=== PATIENT | female | born 1970 | race Caucasian/White ===

== ENCOUNTER 2018-10-01 09:05 | Inpatient (IN) | payer BC ==
[2018-10-01] MEDS ORDERED: Acetaminophen 325 MG Tab PO ONE (09:10)
--- NOTE | 2018-10-01 09:10 | EDM.PDOC ---
ED HPI GENERAL MEDICAL PROBLEM - General Chief Complaint: Respiratory Problem Stated Complaint: SOB, fever Time Seen by Provider: 10/01/18 09:05 Source of Information: Reports: Patient, Old Records ([facility] chart/EMR), Other ([facility] EMR. [place] from [facility] [place] .) History Limitations: Reports: No Limitations - History of Present Illness INITIAL COMMENTS - FREE TEXT/NARRATIVE: She drove herself to the emergency room via private automobile for evaluation of sudden onset fever of 99.7, cough, dizziness, nonspecific dyspnea, nausea, generalized fatigue and weakness with symptoms starting at about 8 AM this morning. Note that the patient has a previous history of immunosuppression and leukopenia, which is being given by her business continuity management director for nonspecific rash. She did apparently stop her immunosuppressants 2 days ago per advice from her business continuity management director with no Neupogen given to this point. She did have a one day history of for loose stools a few days ago with one episode of emesis earlier this morning. The patient did take 400 mg of ibuprofen shortly prior to arrival. Patient's son did have some mild URI symptoms about one week ago with no other known exposure to infection. The patient did not get an influenza booster this past season. She has been having problems for the last couple of weeks with refractory oral and perirectal ulcers with secondary 9/10 oral pain and anorexia during the last several days. The patient denies any chest pain/ pressure, heart flutter, orthostasis, orthopnea, diaphoresis, paresthesias, recent decreased exercise tolerance, or any other anginal-type symptoms. No recent history of abdominal pain, heartburn, diarrhea, melena, gross hematochezia, or any food intolerance, including fatty foods, etc.. She denies any gross hematuria, colic or other UTI symptoms. Onset: Today, Gradual Onset Date: 10/01/18 Onset Time: 08:00 Duration: Constant, Getting Worse Location: Reports: Head (Oral ulcers) Quality: Reports: Burning, Sharp Severity: Severe Improves with: Reports: None Worsens with: Reports: None Context: Reports: Sick Contact (As above), Other (As above). Denies: Trauma Associated Symptoms: Reports: Fever/Chills, Loss of Appetite, Malaise, Nausea/ Vomiting, Shortness of Breath, Weakness. Denies: Confusion, Chest Pain, Cough, cough w sputum, Diaphoresis, Headaches, Rash, Seizure, Syncope Treatments RD SCIENTIST: Reports: NSAIDS Oral/Mouth Pain Score (Numeric/FACES): 9 - Related Data Allergies Allergy/AdvReac Type Severity Reaction Status Date / Time No Known Allergies Allergy Verified 10/01/18 09:06 Home Meds: Home Meds Acetaminophen [Tylenol] 650 mg PO Q4H PRN 10/01/18 [History] Diphenhyd/Lidocaine/Nystatin [Magic Mouthwash] 10 ml PO ASDIRECTED 10/01/18 [ History] Famciclovir [Famvir] 500 mg PO TID 10/01/18 [History] Ibuprofen 400 mg PO Q6H PRN 10/01/18 [History] Melatonin 3 mg PO BEDTIME 10/01/18 [History] Mycophenolate Mofetil 1 tab PO ASDIRECTED 10/01/18 [History] Non-Formulary Medication [NF Drug] 1 applic TOP ASDIRECTED 10/01/18 [History] traMADol HCl [Tramadol HCl] 50 mg PO Q6H PRN 10/01/18 [History] traZODone HCl [Trazodone HCl] 50 mg PO BEDTIME 10/01/18 [History] Past Medical History HEENT History: Reports: Allergic Rhinitis, Impaired Vision, Other (See Below). Denies: Cataract, Glaucoma, Hard of Hearing, Macular Degeneration, Otitis Media , Retinal Detachment Other HEENT History: She wears glasses. Dry eye syndrome. Cardiovascular History: Reports: Heart Murmur, Other (See Below). Denies: Afib , Aneurysm, Arrhythmia, Blood Clots/VTE/DVT, CAD, Cardiomyopathy, Heart Failure , High Cholesterol, Hypertension, SC, PVD, Syncope Other Cardiovascular History: Benign heart murmur by distant echocardiogram as below. Occasional hypotension. Respiratory History: Reports: Intubation, Previous. Denies: Asthma, Bronchitis , Recurrent, COPD, Intubation, Difficult, PE, Pneumonia, Recurrent, Pneumothorax , Sleep Apnea, TB Gastrointestinal History: Reports: Bowel Obstruction, Other (See Below). Denies : Celiac Disease, Cholelithiasis, Chronic Constipation, Chronic Diarrhea, Colon Polyp, Diverticulosis, Fecal Incontinence, Gastritis, GERD, GI Bleed, Hiatal Hernia, Inflammatory Bowel Disease, Irritable Bowel Syndrome, Jaundice, Pancreatitis, PUD Other Gastrointestinal History: Post ileus on 12/03/10. Genitourinary History: Reports: None. Denies: Acute Renal Failure, Chronic Renal Insuffiency, Renal Calculus, Retention, Urinary, STD, Urinary Incontinence , UTI, Recurrent CERTIFIED PHARMACIST ASSISTANT History: Reports: , Spontaneous . 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 Note history of placental abruption at 34 1/7 weeks requiring as below. Otherwise, Full term without complications during pregnancies or deliveries. Borderline gestational diabetes with secondary . LMP one week ago, which was light. Musculoskeletal History: Reports: Arthritis, Osteoarthritis, Other (See Below). Denies: Amputation, Back Pain, Chronic, Fracture, Gout, Neck Pain, Chronic, RA , SLE Other Musculoskeletal History: Right rotator cuff tear requiring surgery as below. Neurological History: Reports: Headaches, Chronic, Migraines, Other (See Below) . Denies: Cerebral Aneurysms, Concussion, CVA, Head Trauma, MS, Neuropathy, Peripheral, Parkinson's, Seizure, TIA, Vertigo Other Neuro History: Mixed migraine and tension headaches. Psychiatric History: Reports: Anxiety, Depression. Denies: Abuse, Victim of, ADD, ADHD, Addiction, Psych Hospitalization(s), PTSD, Suicide Attempt, Suicidal Ideation Endocrine/Metabolic History: Reports: Diabetes, Gestational, Other (See Below). Denies: Diabetes, Type I, Diabetes, Type II, Diabetes Mellitus, Type 3c, Hypothyroidism, IDDM Other Endocrine/Metabolic History: Borderline gestational diabetes as above. Hypokalemia. Hematologic History: Reports: Anemia, Blood Transfusion(s), Other (See Below). Denies: Iron Deficiency Other Hematologic History: Leukopenia secondary to immunosuppressant therapy in 2018. Blood transfusion in 2007. Immunologic History: Reports: Immunosuppression, Other (See Below). Denies: AIDS, HIV, SLE Other Immunologic History: Medication induced immunosuppression secondary to treatment for her rash as below. Oncologic (Cancer) History: Reports: None. Denies: Basal Cell Carcinoma, Breast , Cervix, Hodgkin's Lymphoma, Leukemia, Lymphoma, Malignant Melanoma, Non- Hodgkin's Lymphoma, Ovarian, Renal, Squamous Cell Carcinoma, Thyroid Dermatologic History: Reports: Other (See Below). Denies: Eczema, Psoriasis Other Dermatologic History: Nonspecific rash since 2013 with diagnosis of hypersensitivity dermatitis requiring immunosuppression in [id number]. - Infectious Disease History Infectious Disease History: Reports: Chicken Pox, Influenza (Influenza A on 31/07.). Denies: C-Difficile, Measles, Meningitis, Mononucleosis, MRSA, Mumps, Pertussis (Whooping Cough), Rheumatic Fever, Rubella, Scarlet Fever, Shingles, TB, VRE - Past Surgical History Head Surgeries/Procedures: Reports: None HEENT Surgical History: Reports: Oral Surgery, Other (See Below). Denies: Adenoidectomy, Cataract Surgery, Eye Surgery, Laser Surgery, LASIK, Myringotomy w Tube(s), Naso-Sinus Surgery, Tonsillectomy Other HEENT Surgeries/Procedures: [place] teeth extraction 4 at age 20 with current posterior braces. Cardiovascular Surgical History: Reports: None. Denies: Varicose Respiratory Surgical History: Reports: None. Denies: Thoracentesis GI Surgical History: Reports: None. Denies: Appendectomy, Cholecystectomy, Colonoscopy, EGD, Hernia, Abdominal, Hernia, Inguinal, Hernia Repair/Other Female Surgical History: Reports: Breast Implant, D&C, Dilitation & Evacuation, Tubal Ligation, Other (See Below). Denies: Breast Biopsy, Section Other Female Surgeries/Procedures: Bilateral breast implants at age 42 in 2011. Bilateral tubal ligation in 2010. Emergency on 12/01/10 secondary to placental abruption at 34 1/7 weeks gestation as above. Resection of uterine synechiae on 02/26/10. D&C secondary to SABs on 03/09/08 and 02/11/07. Endocrine Surgical History: Reports: None. Denies: Thyroid Biopsy Neurological Surgical History: Denies: C-Spine, Discectomy, Laminectomy, Lumbar Spine, Sacral Spine, Spinal Fusion, Thoracic Spine, Vertebroplasty Musculoskeletal Surgical History: Reports: Arthroscopic Procedure, Shoulder Surgery (Arthroscopic right rotator cuff tear in January 2017.). Denies: Amputation, Carpal Tunnel, Ganglion Cyst, Joint Replacement, ORIF, Shoulder Replacement Oncologic Surgical History: Reports: None Dermatological Surgical History: Reports: Skin Biopsy, Other (See Below) Other Dermatological Surgeries/Procedures: Skin biopsy for nonspecific rash on . - Past Imaging History Past Imaging History: Reports: Cardiac Echo (1996 and 2006 with results not available), CAT Scan (CT of the abdomen and pelvis on 12/03/10. Negative CTA of the chest on 12/07/06.), Mammogram (Last mammogram on 01/21/16), MRI (MRI of the right shoulder on 01/05/17.), Ultrasound (Breast ultrasound on 06/10/13. Right axillary ultrasound on 06/10/13), Other (See Below) (Hydrosalpingogram on 04/06/09. ) Social & Family History - Family History HEENT: Reports: None. Denies: Glaucoma, Macular Degeneration, Retinal Detachment Cardiac: Reports: Other (See Below). Denies: Afib, Aneurysm, Arrhythmia, Blood Clots/VTE/DVT, Bypass, CAD, Heart Failure, High Cholesterol, Hypertension, SC, Pacemaker, PVD/COD, Syncope Other Cardiac Family History: Other with unknown type of heart disease. Paternal grandmother with hypertension. Respiratory: Reports: COPD, Other (See Below). Denies: Asthma, PE, Pneumothorax , Sleep Apnea Other Respiratory Family Hisory: Paternal grandfather with COPD with history of tobacco use. GI: Denies: Celiac Disease, Cholelithiasis, Colon Polyps, GERD, GI bleed, Hepatitis, Inflammatory Bowel Disease, Irritable Bowel Syndrome, PUD : Reports: None. Denies: Renal Calculus, Renal Disease/Insufficiency OBGYN: Reports: None. Denies: Recurrent Spontaneous Musculoskeletal: Reports: RA, Other (See Below). Denies: Gout, SLE Other Musculoskeletal Family History: Mother with rheumatoid arthritis. Neurological: Reports: None. Denies: Alzheimers Disease, Cerebral Aneurysms, CVA, Dementia, Migraines, MS, Neuropathy, Peripheral, Parkinson's, Seizure, TIA Psychiatric: Reports: None. Denies: Abuse, Victim of, ADD, ADHD, Anxiety, Depression, Psych Hospitalization(s), PTSD, Suicide Attempt Endocrine/Metabolic: Reports: Diabetes, Gestational, Diabetes, type II, Hypothyroidism, IDDM, Other (See Below). Denies: Diabetes Mellitus, Type 3c Other Endocrine/Metabolic Family History: Paternal grandfather with AODM. Paternal grandmother with hypothyroidism. Hematologic: Reports: None. Denies: Anemia, SLE, Transfusion Reaction Immunologic: Reports: None. Denies: AIDS, HIV, SLE Dermatologic: Reports: None. Denies: Eczema, Psoriasis Oncologic: Reports: Other (See Below) Other Oncologic Family History: Maternal grandfather with fatal unknown type of cancer in his 70s. Maternal aunt with fatal breast cancer in her 60s. Maternal cousin with fatal leukemia at age 10. Paternal aunt with fatal lung cancer in her 40s with no history of tobacco use. Paternal grandfather with prostate cancer. - Tobacco Use Smoking Status *Q: Never Smoker Tobacco Use Within Last Twelve Months: No Used Tobacco, but Quit: No Smoking Cessation Information Provided To Patient: No Second Hand Smoke Exposure: No Second Hand Smoke Education Provided: No - Caffeine Use Caffeine Use: Reports: Coffee (2 cups per month). Denies: Energy Drinks, Soda, Tea - Alcohol Use Alcohol Use History: Yes Days Per Week of Alcohol Use: 2 Number of Drinks Per Day: 6 Total Drinks Per Week: 12 Total Drinks Per Week Comment: Usually beer. No previous DWIs, problems with alcohol abuse, etc. Alcohol Use in Last Twelve Months: Yes - Recreational Drug Use Recreational Drug Use: No Drug Use in Last 12 Months: No Recreational Drug Type: Denies: Amphetamines (Speed), Cocaine, Heroin, Inhalants (Glues, Solvents, Aerosols), LSD (Acid), Marijuana/Hashish, Methamphetamine, Morphine, Oxycodone - Sexual History Sexual History: Reports: Sexually Active ED ROS GENERAL - Review of Systems Review Of Systems: ROS reveals no pertinent complaints other than HPI. ED EXAM, GENERAL - Physical Exam Exam: See Below Exam Limited By: No Limitations General Appearance: Alert, WD/WN, No Apparent Distress, Anxious (Moderate) Eye Exam: Bilateral Eye: EOMI, Normal Inspection (No nystagmus. Patient wearing glasses), PERRL Ears: Normal External Exam, Normal Canal, Hearing Grossly Normal, Normal TMs Nose: Normal Inspection, Normal Mucosa, No Blood Throat/Mouth: Normal Lips, Normal Teeth, Normal Gums, No Airway Compromise, Inflammation (As above). No: Normal Oropharynx (Multiple oral ulcers throughout oral cavity with no acute drainage, mild increased oral moisture), Dysphagia, Perioral Cyanosis Head: Atraumatic, Normocephalic. No: Facial Swelling, Facial Tenderness, Sinus Tenderness Neck: Normal Inspection, Supple, Non-Tender, Full Range of Motion. No: Carotid Bruit, Lymphadenopathy (L), Lymphadenopathy (R), Thyromegaly Respiratory/Chest: No Respiratory Distress, Lungs Clear, Normal Breath Sounds, No Accessory Muscle Use, Chest Non-Tender. No: Pleural Rub, Retractions Cardiovascular: Normal Peripheral Pulses, No Edema, No Gallop, No JVD, No Murmur , No Rub, JVD, Tachycardia (Regular rhythm). No: Gallop/S3, Gallop/S4, Friction Rub Peripheral Pulses: 2+: Radial (L), Radial (R), Dorsalis Pedis (L), Dorsalis Pedis (R) GI/Abdominal: Normal Bowel Sounds, Soft, Non-Tender, No Organomegaly, No Distention, No Abnormal Bruit, No Mass. No: Guarding (Female) Exam: Deferred Rectal (Female) Exam: Deferred Back Exam: Normal Inspection, Full Range of Motion. No: CVA Tenderness (L), CVA Tenderness (R), Muscle Spasm Extremities: Normal Inspection, Normal Range of Motion, Non-Tender, No Pedal Edema, Normal Capillary Refill. No: Rose's Sign Neurological: Alert, Oriented, CN II-XII Intact, Normal Cognition, Normal Gait, Normal Reflexes (Negative Babinski's), No Motor/Sensory Deficits Psychiatric: Anxious (Moderate), Depressed Mood (Borderline) Skin Exam: Warm, Dry, Normal Color, No Rash, Rash (As above/below), Wound/ Incision (Perirectal lesions by history). No: Diaphoretic, Ecchymosis, Pallor, Petechiae Lymphatic: No Adenopathy Course - Vital Signs Last Recorded V/S: Last Vital Signs Temp 37.3 C 10/01/18 12:59 Pulse 100 10/01/18 12:59 Resp 20 10/01/18 12:59 BP 106/59 L 10/01/18 12:59 Pulse Ox 100 10/01/18 12:59 Vital Signs - 24 hr 10/01/18 10/01/18 10/01/18 09:09 09:11 09:17 Temperature [ 37.5 C 37.7 C Temporal] Pulse, 116 H 108 H Peripheral [ Pulse Oximetry] Respiratory 20 18 Rate Blood Pressure 137/73 110/61 [Left Upper Arm ] O2 Sat by Pulse 100 100 Oximetry O2 Sat by Pulse 100 Oximetry [Room Air] 10/01/18 10/01/1819 09:32 09:50 10:09 Temperature [ 37.7 C Temporal] Pulse, 102 H 95 98 Peripheral [ Pulse Oximetry] Respiratory 18 20 20 Rate Blood Pressure 103/53 L 102/60 104/60 [Left Upper Arm ] O2 Sat by Pulse 100 100 98 Oximetry O2 Sat by Pulse Oximetry [Room Air] 10/01/18 10/01/18 10/01/18 10:35 11:00 12:00 Temperature [ 37.6 C Temporal] Pulse, 98 100 99 Peripheral [ Pulse Oximetry] Respiratory 18 18 20 Rate Blood Pressure 108/58 L 110/62 111/64 [Left Upper Arm ] O2 Sat by Pulse 99 100 99 Oximetry O2 Sat by Pulse Oximetry [Room Air] 10/01/18 12:59 Temperature [ 37.3 C Temporal] Pulse, 100 Peripheral [ Pulse Oximetry] Respiratory 20 Rate Blood Pressure 106/59 L [Left Upper Arm ] O2 Sat by Pulse 100 Oximetry O2 Sat by Pulse Oximetry [Room Air] - Orders/Labs/Meds Orders: Active Orders 24 hr Category Date Time Status Cardiac Monitoring [RC] CONTINUOUS Care 10/01/18 09:11 Active Communication Order [RC] ROUTINE Care 10/01/18 09:11 Active Oxygen Therapy, ED [RC] PRN Care 10/01/18 09:11 Active Peripheral IV Care [RC] . DIRECTED Care 10/01/18 09:12 Active Pulse Oximetry [RC] CONTINUOUS Care 10/01/18 09:11 Active Up With Assistance [RC] ASDIRECTED Care 10/01/18 09:11 Active Nothing Per Oral Diet [DIET] Diet 10/01/18 Breakfast Active Chest 2V [CR] Stat Exams 10/01/18 09:11 Taken Chest PE [Ang Chest] [CT] Stat Exams 10/01/18 10:39 Taken CULTURE BLOOD [BC] Stat Lab 10/01/18 09:22 Received CULTURE BLOOD [BC] Stat Lab 10/01/18 09:40 Received CULTURE SPUTUM + SMEAR [] Urgent Lab 10/01/18 09:11 Ordered CULTURE STREP A CONFIRMATION [] Stat Lab 10/01/18 09:15 Results CULTURE URINE [RM] Routine Lab 10/01/18 09:11 Received STREP SCRN A RAPID W CULT CONF [] Stat Lab 10/01/18 09:15 Results D5 1/2 NS w/ 20 mEq/L KCl 1,000 ml Med 10/01/18 11:15 Active IV ASDIRECTED Sodium Chloride 0.9% [Saline Flush] Med 10/01/18 09:10 Active 10 ml FLUSH ASDIRECTED PRN Blood Culture x2 Reflex Set [OM.PC] Stat Ot 10/01/18 09:11 Ordered Obtain Past Medical Record [OM.PC] Stat Ot 10/01/18 09:11 Active Peripheral IV Insertion Adult [OM.PC] Stat Ot 10/01/18 09:11 Ordered Resuscitation Status Routine Resus Stat 10/01/18 09:10 Ordered Medication Orders Potassium Chloride/Dextrose/Sod Cl (D5 1/2 Ns W/ 20 Meq/L Kcl) 1,000 mls @ 100 mls/hr IV ASDIRECTED MIRTHA Last Admin: 10/01/18 11:48 Dose: 100 mls/hr Sodium Chloride (Saline Flush) 10 ml FLUSH ASDIRECTED PRN PRN Reason: Keep Vein Open Last Admin: 10/01/18 11:50 Dose: 10 ml Labs: Laboratory Tests 10/01/18 10/01/18 10/01/18 Range/Units 09:11 09:22 09:22 WBC 1.0 L* (4.0-10.2) K/uL RBC 4.57 (3.77-5.09) M/uL Hgb 13.0 (11.7-15.5) g/dL Hct 37.3 (34.0-46.0) % MCV 81.6 L (84.0-98.0) fL MCH 28.4 (28.2-33.3) pg MCHC 34.9 (31.7-36.0) g/dL RDW 13.5 (11.2-14.1) % Plt Count 166 (150-350) K/uL Neut % (Auto) 32.0 L (45.0-80.0) % Lymph % (Auto) 26.8 (10.0-50.0) % [place] % (Auto) 40.2 H (2.0-14.0) % Eos % (Auto) 0.0 (0.0-5.0) % Baso % (Auto) 1.0 (0.0-2.0) % Neut # (Auto) 0.31 L (1.40-7.00) K/uL Lymph # (Auto) 0.26 L (0.50-3.50) K/uL [place] # (Auto) 0.39 (0.00-1.00) K/uL Eos # (Auto) 0.00 (0.00-0.50) K/uL Baso # (Auto) 0.01 (0.00-0.20) K/uL PT 11.4 (9.5-12.0) SEC INR 1.1 APTT 33.3 H (21.0-31.3) SEC D-Dimer, Quantitative (0-400) ng/mL Sodium (136-145) mmol/L Potassium (3.5-5.1) mmol/L Chloride (98-107) mmol/L Carbon Dioxide (21.0-32.0) mmol/L BUN (7-18) mg/dL Creatinine (0.51-1.17) mg/dL Est Cr Clr Drug Dosing mL/min Estimated GFR (MDRD) mL/min Glucose (74-106) mg/dL Lactic Acid (0.4-2.0) mmol/L Calcium (8.5-10.1) mg/dL Magnesium (1.8-2.4) mg/dL Total Bilirubin (0.2-1.0) mg/dL AST (15-37) U/L ALT (12-78) U/L Alkaline Phosphatase (46-116) IU/L Creatine Kinase (26-308) U/L Creatine Kinase Index (0.0-2.5) % CK-MB (CK-2) (0.00-3.60) ng/mL Troponin I (0.000-0.056) ng/mL NT-Pro-B Natriuret Pep (0-125) pg/mL Total Protein (6.4-8.2) g/dL Albumin (3.4-5.0) g/dL TSH, Ultra Sensitive (0.358-3.740) mIU/mL HCG, Qual (NEGATIVE) Specimen Type Urincc Urine Color Yellow Urine Appearance Clear Urine pH 6.0 (5.0-9.0) Ur Specific [place] 1.010 (1.005-1.030) Urine Protein 30 H (NEGATIVE) mg/dL Urine Glucose (UA) Negative (NEGATIVE) mg/dL Urine Ketones 80 H (NEGATIVE) mg/dL Urine Occult Blood Trace-intact H (NEGATIVE) Urine Nitrite Negative (NEGATIVE) Urine Bilirubin Small H (NEGATIVE) Urine Urobilinogen 0.2 (0.2-1.0) E.U./dL Ur Leukocyte Esterase Negative (NEGATIVE) Urine RBC 0-5 /HPF Urine WBC 10-20 H /HPF Ur Epithelial Cells Occasional /LPF Urine Bacteria Moderate H (NONE TO FEW) /HPF Granular Casts Few H (NEGATIVE) /LPF Urinalysis Comment 10/01/18 10/01/18 10/01/18 Range/Units 09:22 09:22 09:22 WBC (4.0-10.2) K/uL RBC (3.77-5.09) M/uL Hgb (11.7-15.5) g/dL Hct (34.0-46.0) % MCV (84.0-98.0) fL MCH (28.2-33.3) pg MCHC (31.7-36.0) g/dL RDW (11.2-14.1) % Plt Count (150-350) K/uL Neut % (Auto) (45.0-80.0) % Lymph % (Auto) (10.0-50.0) % [place] % (Auto) (2.0-14.0) % Eos % (Auto) (0.0-5.0) % Baso % (Auto) (0.0-2.0) % Neut # (Auto) (1.40-7.00) K/uL Lymph # (Auto) (0.50-3.50) K/uL [place] # (Auto) (0.00-1.00) K/uL Eos # (Auto) (0.00-0.50) K/uL Baso # (Auto) (0.00-0.20) K/uL PT (9.5-12.0) SEC INR APTT (21.0-31.3) SEC D-Dimer, Quantitative 856 H (0-400) ng/mL Sodium 139 (136-145) mmol/L Potassium 2.3 L* (3.5-5.1) mmol/L Chloride 99 (98-107) mmol/L Carbon Dioxide 23.4 (21.0-32.0) mmol/L BUN 13 (7-18) mg/dL Creatinine 0.80 (0.51-1.17) mg/dL Est Cr Clr Drug Dosing 66.31 mL/min Estimated GFR (MDRD) > 60 mL/min Glucose 114 H (74-106) mg/dL Lactic Acid 2.0 (0.4-2.0) mmol/L Calcium 9.2 (8.5-10.1) mg/dL Magnesium 1.7 L (1.8-2.4) mg/dL Total Bilirubin 1.0 (0.2-1.0) mg/dL AST 17 (15-37) U/L ALT 26 (12-78) U/L Alkaline Phosphatase 65 (46-116) IU/L Creatine Kinase 9 L (26-308) U/L Creatine Kinase Index 3.3 H (0.0-2.5) % CK-MB (CK-2) 0.30 (0.00-3.60) ng/mL Troponin I 0.009 (0.000-0.056) ng/mL NT-Pro-B Natriuret Pep 282 H (0-125) pg/mL Total Protein 7.2 (6.4-8.2) g/dL Albumin 4.0 (3.4-5.0) g/dL TSH, Ultra Sensitive 1.911 (0.358-3.740) mIU/mL HCG, Qual (NEGATIVE) Specimen Type Urine Color Urine Appearance Urine pH (5.0-9.0) Ur Specific [place] (1.005-1.030) Urine Protein (NEGATIVE) mg/dL Urine Glucose (UA) (NEGATIVE) mg/dL Urine Ketones (NEGATIVE) mg/dL Urine Occult Blood (NEGATIVE) Urine Nitrite (NEGATIVE) Urine Bilirubin (NEGATIVE) Urine Urobilinogen (0.2-1.0) E.U./dL Ur Leukocyte Esterase (NEGATIVE) Urine RBC /HPF Urine WBC /HPF Ur Epithelial Cells /LPF Urine Bacteria (NONE TO FEW) /HPF Granular Casts (NEGATIVE) /LPF Urinalysis Comment 10/01/18 Range/Units 09:22 WBC (4.0-10.2) K/uL RBC (3.77-5.09) M/uL Hgb (11.7-15.5) g/dL Hct (34.0-46.0) % MCV (84.0-98.0) fL MCH (28.2-33.3) pg MCHC (31.7-36.0) g/dL RDW (11.2-14.1) % Plt Count (150-350) K/uL Neut % (Auto) (45.0-80.0) % Lymph % (Auto) (10.0-50.0) % [place] % (Auto) (2.0-14.0) % Eos % (Auto) (0.0-5.0) % Baso % (Auto) (0.0-2.0) % Neut # (Auto) (1.40-7.00) K/uL Lymph # (Auto) (0.50-3.50) K/uL [place] # (Auto) (0.00-1.00) K/uL Eos # (Auto) (0.00-0.50) K/uL Baso # (Auto) (0.00-0.20) K/uL PT (9.5-12.0) SEC INR APTT (21.0-31.3) SEC D-Dimer, Quantitative (0-400) ng/mL Sodium (136-145) mmol/L Potassium (3.5-5.1) mmol/L Chloride (98-107) mmol/L Carbon Dioxide (21.0-32.0) mmol/L BUN (7-18) mg/dL Creatinine (0.51-1.17) mg/dL Est Cr Clr Drug Dosing mL/min Estimated GFR (MDRD) mL/min Glucose (74-106) mg/dL Lactic Acid (0.4-2.0) mmol/L Calcium (8.5-10.1) mg/dL Magnesium (1.8-2.4) mg/dL Total Bilirubin (0.2-1.0) mg/dL AST (15-37) U/L ALT (12-78) U/L Alkaline Phosphatase (46-116) IU/L Creatine Kinase (26-308) U/L Creatine Kinase Index (0.0-2.5) % CK-MB (CK-2) (0.00-3.60) ng/mL Troponin I (0.000-0.056) ng/mL NT-Pro-B Natriuret Pep (0-125) pg/mL Total Protein (6.4-8.2) g/dL Albumin (3.4-5.0) g/dL TSH, Ultra Sensitive (0.358-3.740) mIU/mL HCG, Qual Negative (NEGATIVE) Specimen Type Urine Color Urine Appearance Urine pH (5.0-9.0) Ur Specific [place] (1.005-1.030) Urine Protein (NEGATIVE) mg/dL Urine Glucose (UA) (NEGATIVE) mg/dL Urine Ketones (NEGATIVE) mg/dL Urine Occult Blood (NEGATIVE) Urine Nitrite (NEGATIVE) Urine Bilirubin (NEGATIVE) Urine Urobilinogen (0.2-1.0) E.U./dL Ur Leukocyte Esterase (NEGATIVE) Urine RBC /HPF Urine WBC /HPF Ur Epithelial Cells /LPF Urine Bacteria (NONE TO FEW) /HPF Granular Casts (NEGATIVE) /LPF Urinalysis Comment Urine specimen set up for culture and sensitivity. Blood Cultures 2 collected Microbiology 10/01/18 09:15 Influenza Type A Antigen Screen - Final Nasal Aspirate, Left NEGATIVE INFLUENZA A VIRUS AG Influenza Type B Antigen Screen - Final NEGATIVE INFLUENZA B VIRUS AG 10/01/18 09:15 Group A Streptococcus Rapid Screen - Final Throat NEGATIVE STREP A SCREEN Meds: Medications Generic Name Dose Route Start Last Admin Trade Name Freq PRN Reason Stop Dose Admin Potassium Chloride/Dextrose/Sod Cl 1,000 mls @ 100 mls/hr 10/01/18 11:15 08/21 11:48 D5 1/2 Ns W/ 20 Meq/L Kcl IV 100 mls/hr ASDIRECTED MIRTHA Administration Sodium Chloride 10 ml 10/01/18 09:10 10/01/18 11:50 Saline Flush FLUSH 10 ml ASDIRECTED PRN Administration Keep Vein Open Discontinued Medications Generic Name Dose Route Start Last Admin Trade Name Freq PRN Reason Stop Dose Admin Acetaminophen 650 mg 10/01/18 09:10 10/01/18 09:26 Tylenol PO 10/01/18 09:11 650 mg ONETIME ONE Administration Lactated Ringer's 1,000 mls @ 999 mls/hr 10/01/18 09:50 10/01/18 09:50 Ringers, Lactated IV 10/01/18 10:50 999 mls/hr .BOLUS ONE Administration Levofloxacin/Dextrose 500 mg/ 100 mls @ 100 mls/hr 10/01/18 11:33 10/01/18 11 :49 Premix IV 10/01/18 12:32 100 mls/hr ONETIME ONE Administration Iopamidol 100 ml 10/01/18 13:00 10/01/18 11:26 Isovue-370 (76%) IVPUSH 10/01/18 13:01 100 ml ONETIME ONE Administration Ondansetron HCl 4 mg 10/01/18 10:20 10/01/18 10:38 Zofran IVPUSH 10/01/18 10:21 4 mg ONETIME ONE Administration Potassium Chloride 40 meq 10/01/18 10:10 10/01/18 10:38 Klor-Con M20 PO 10/01/18 10:11 40 meq ONETIME ONE Administration - Radiology Interpretation Free Text/Narrative:: panel monitor initially showed mild sinus tachycardia with heart rate in the 100s to 110s with improvement to the 90s prior to admission. No ectopy or arrhythmia Chest x-ray, PA and lateral, shows surgical clips secondary to breast implants with no cardiomegaly, pulmonary infiltrates, pneumothorax, CHF, etc. Telephone consultation at 12:08 PM on 10/11 with preliminary verbal report of CTA of the chest under PE protocol. No abnormality is noted including evidence of PE, etc. CT Results Date: 10/01/18 CT Results Time: 12:08 Departure - Departure Time of Disposition: 13:00 Disposition: Admitted As Inpatient 68 Condition: Fair Clinical Impression: Leukopenia, Dehydration, Tachycardia, Dermatitis, D-dimer, elevated, Hypomagnesemia, Mixed anxiety depressive disorder, Osteoarthritis - Discharge Information *PRESCRIPTION DRUG MONITORING PROGRAM REVIEWED*: Not Applicable *COPY OF PRESCRIPTION DRUG MONITORING REPORT IN PATIENT FELICIA: Not Applicable Referrals: Rossy Hurtado PA [Primary Care Provider] - Forms: ED Department Discharge Care Plan Goals: See plan - Problem List & Annotations (1) Dehydration SNOMED Code(s): 94575581 Code(s): E86.0 - DEHYDRATION Status: Acute Priority: High Current Visit : Yes Onset Date: 10/01/18 Annotation/Comment:: Note dehydration and tachycardia secondary to anorexia and oral pain from her ulcers as above. Aggressive IV hydration in the emergency room and during the initial phases of this hospitalization. (2) D-dimer, elevated SNOMED Code(s): 772127270 Code(s): R79.89 - OTHER SPECIFIED ABNORMAL FINDINGS OF BLOOD CHEMISTRY Status: Acute Priority: High Current Visit: Yes Onset Date: 10/01/18 Annotation/Comment:: CTA results of the chest negative for PE as above. Venous Doppler studies of the lower extremities later today. No Clinical evidence of PE or DVT. (3) Dermatitis SNOMED Code(s): 107952498 Code(s): L30.9 - DERMATITIS, UNSPECIFIED Status: Acute Priority: High Current Visit: Yes Onset Date: 10/01/18 Annotation/Comment:: Telephone consultation at 11:[address] Strange, business continuity management director from , cell phone #[phone], who is in agreement with our treatment plan. Cytomel will not be initiated per his instructions with patient to be declared intolerant to this medication. He is in agreement with possible oral steroid therapy after her leukopenia resolves. He is also in agreement with plan of last injection. Close follow-up on an outpatient basis. Note recent prescription for Famvir and Ultram by [facility]. (4) Hypomagnesemia SNOMED Code(s): 878071896 Code(s): E83.42 - HYPOMAGNESEMIA Status: Acute Priority: Medium Current Visit: Yes Onset Date: 10/01/18 Annotation/Comment:: Initiate magnesium oxide therapy. (5) Leukopenia SNOMED Code(s): 99675916, 303368621 Code(s): D72.819 - DECREASED WHITE BLOOD CELL COUNT, UNSPECIFIED Status: Acute Priority: High Current Visit: Yes Onset Date: 10/01/18 Annotation/ Comment:: As above. Initiate the antibiotic therapy, Neulasta, and isolation precautions. 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 Secondary to refractory rash uric acid level, RICHI, CRP, and rheumatoid factor are to be conducted in the a.m. Qualifiers: Osteoarthritis location: multiple joints Osteoarthritis type: primary Qualified Code(s): M15.0 - Primary generalized (osteo)arthritis (8) Tachycardia SNOMED Code(s): 6730283 Code(s): R00.0 - TACHYCARDIA, UNSPECIFIED Status: Acute Priority: High Current Visit: Yes Onset Date: 10/01/18 Annotation/Comment:: As Above. No chest pain or anginal type symptoms. - Problem List Review Problem List Initiated/Reviewed/Updated: Yes - My Orders Last 24 Hours: My Active Orders 10/01/18 09:10 Sodium Chloride 0.9% [Saline Flush] 10 ml FLUSH ASDIRECTED PRN Resuscitation Status Routine 10/01/18 09:11 Cardiac Monitoring [RC] CONTINUOUS Communication Order [RC] ROUTINE Oxygen Therapy, ED [RC] PRN Pulse Oximetry [RC] CONTINUOUS Up With Assistance [RC] ASDIRECTED Chest 2V [CR] Stat CULTURE SPUTUM + SMEAR [RM] Urgent CULTURE URINE [RM] Routine Blood Culture x2 Reflex Set [OM.PC] Stat Obtain Past Medical Record [OM.PC] Stat Peripheral IV Insertion Adult [OM.PC] Stat 10/01/18 09:12 Peripheral IV Care [RC] . DIRECTED 10/01/18 09:15 CULTURE STREP A CONFIRMATION [RM] Stat STREP SCRN A RAPID W CULT CONF [RM] Stat 10/01/18 09:22 CULTURE BLOOD [BC] Stat 10/01/18 09:40 CULTURE BLOOD [BC] Stat 10/01/18 10:39 Chest PE [Ang Chest] [CT] Stat 10/01/18 11:15 D5 1/2 NS w/ 20 mEq/L KCl 1,000 ml IV ASDIRECTED 10/01/18 Breakfast Nothing Per Oral Diet [DIET] - Assessment/Plan Admission H&P: Please use this note as an admission H&P Last 24 Hours: My Active Orders 10/01/18 09:10 Sodium Chloride 0.9% [Saline Flush] 10 ml FLUSH ASDIRECTED PRN Resuscitation Status Routine 10/01/18 09:11 Cardiac Monitoring [RC] CONTINUOUS Communication Order [RC] ROUTINE Oxygen Therapy, ED [RC] PRN Pulse Oximetry [RC] CONTINUOUS Up With Assistance [RC] ASDIRECTED Chest 2V [CR] Stat CULTURE SPUTUM + SMEAR [RM] Urgent CULTURE URINE [RM] Routine Blood Culture x2 Reflex Set [OM.PC] Stat Obtain Past Medical Record [OM.PC] Stat Peripheral IV Insertion Adult [OM.PC] Stat 10/01/18 09:12 Peripheral IV Care [RC] . DIRECTED 10/01/18 09:15 CULTURE STREP A CONFIRMATION [RM] Stat STREP SCRN A RAPID W CULT CONF [RM] Stat 10/01/18 09:22 CULTURE BLOOD [BC] Stat 10/01/18 09:40 CULTURE BLOOD [BC] Stat 10/01/18 10:39 Chest PE [Ang Chest] [CT] Stat 10/01/18 11:15 D5 1/2 NS w/ 20 mEq/L KCl 1,000 ml IV ASDIRECTED 10/01/18 Breakfast Nothing Per Oral Diet [DIET] Assessment:: As above Plan: As above. Extensive precautions were given to the patient, who is in agreement with the treatment plan. The patient will require about 3-4 days of inpatient/ acute care secondary to multiple health problems as above.
[2018-10-01] MEDS ORDERED: Lactated Ringers 1,000 ML IV ONE (09:50)
[2018-10-01] MEDS ORDERED: Potassium Chloride 20 MEQ Tab.ER PO ONE (10:10)
[2018-10-01] MEDS ORDERED: Ondansetron 4 MG/2 ML SDV IVPUSH ONE (10:20)
[2018-10-01 10:27] LABS: CHLORIDE,CL 99 mmol/L (98-107); SODIUM,NA 139 mmol/L (136-145)
[2018-10-01] MEDS ORDERED: Levofloxacin/Dextrose 5%-Water 500 MG in Premix Bag 1 BAG IV ONE (11:33)
[2018-10-01] MEDS: D5 1/2 NS w/ 20 mEq/L KCl 1,000 ML IV SCH (11:48)
[2018-10-01] MEDS: Sodium Chloride 0.9% 10 ML Syringe FLUSH PRN ×2 (11:50→16:02)
[2018-10-01] MEDS ORDERED: Iopamidol 755 Mg/ML 100 ML Bottle IVPUSH ONE (13:00)
[2018-10-01] MEDS ORDERED: Temazepam 15 MG Cap PO PRN (13:13)
[2018-10-01] MEDS ORDERED: Albuterol/Ipratropium 3.0-0.5 MG/3 ML Neb Soln NEB PRN (13:13)
[2018-10-01] MEDS ORDERED: Non-Formulary Medication 1 Each TOP SCH (13:15)
[2018-10-01] MEDS ORDERED: Albuterol 0.083% 2.5 MG/3 ML Neb Soln NEB PRN (14:00)
[2018-10-01] MEDS: Piperacillin/Tazobactam 3.375 GM in Sodium Chloride 0.9% 100 ML IV SCH ×2 (16:02→19:45)
[2018-10-01] MEDS: Gentian Violet 59 ML Bottle TOP SCH ×2 (16:04→17:34)
[2018-10-01] MEDS: traMADol 50 MG Tab PO PRN (17:34)
[2018-10-01] MEDS: Lactobacillus Rhamnosus GG (Probiotic) Cap PO SCH (17:34)
[2018-10-01] MEDS: Melatonin 3 MG Tab PO SCH (19:43)
[2018-10-01] MEDS: Acetaminophen 325 MG Tab PO PRN (19:44)
[2018-10-01] MEDS: Sodium Chloride 0.9% 10 ML Syringe FLUSH SCH (19:45)
[2018-10-01] MEDS: Lidocaine 2% Viscous Solution 15 ML Cup PO PRN (19:45)
[2018-10-01] MEDS ORDERED: Budesonide 0.5 MG/2 ML Neb Susp NEB SCH (20:00)
[2018-10-02] MEDS: Ibuprofen 200 MG Tab PO PRN (00:41)
[2018-10-02] MEDS: D5 1/2 NS w/ 20 mEq/L KCl 1,000 ML IV SCH ×3 (00:41→14:53)
[2018-10-02] MEDS: traMADol 50 MG Tab PO PRN ×2 (01:47→17:21)
[2018-10-02] MEDS: Piperacillin/Tazobactam 3.375 GM in Sodium Chloride 0.9% 100 ML IV SCH ×4 (01:47→19:22)
[2018-10-02] MEDS: Gentian Violet 59 ML Bottle TOP SCH ×2 (08:24→17:22)
[2018-10-02] MEDS: Zinc (Zinc Gluconate) 50 MG Tab PO SCH (08:25)
[2018-10-02] MEDS: Lactobacillus Rhamnosus GG (Probiotic) Cap PO SCH ×3 (08:25→17:20)
[2018-10-02] MEDS: Sodium Chloride 0.9% 10 ML Syringe FLUSH SCH ×2 (08:27→19:23)
--- NOTE | 2018-10-02 08:52 | PCM.PN ---
- General Info Date of Service: 10/02/18 Admission Dx/Problem (Free Text): 1. Leukopenia 2. 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 Denies: Ambulating, Urinating Pain Score: 5 (No oral pain with lidocaine, etc. therapy) - Review of Systems General: Reports: Other (Slowly improving oral stomatitis). Denies: Fever ( Afebrile this morning with resolution of previous fever), Weakness, Fatigue ( Resolved with IV fluids), Malaise, Chills, Night Sweats, Appetite (Good) HEENT: Reports: Glasses, Other (Persistent moderate to severe oral stomatitis with pain under good control with current medical therapy). Denies: Ear Pain, Eye Pain, Headaches, Post Nasal Drip, Sinus Congestion, Sore Throat, Rhinitis, Visual Changes Pulmonary: Reports: No Symptoms. Denies: Shortness of Breath, Pleuritic Chest Pain, Cough, Sputum, Hemoptysis, Wheezing Cardiovascular: Reports: No Symptoms. Denies: Chest Pain, Palpitations, Dyspnea on Exertion, Orthopnea, Edema, Lightheadedness Gastrointestinal: Reports: No Symptoms, Nausea (Very occasionalimproved), Other (Slowly improving oral intake with oral therapy with no bowel movement to this point). Denies: Abdominal Pain, Constipation, Decreased Appetite, Diarrhea , Difficulty Swallowing, Flatus, Melena, Vomiting Genitourinary: Reports: No Symptoms. Denies: Dysuria, Frequency, Burning, Pain , Urgency, Incontinence, Hematuria, Retention, Flank Pain Musculoskeletal: Reports: No Symptoms. Denies: Neck Pain, Shoulder Pain, Arm Pain, Back Pain, Leg Pain Skin: Reports: Other (Improving perirectal lesions by history) Neurological: Reports: No Symptoms. Denies: Confusion, Dizziness, Headache, Numbness, Paresthesia, Tingling, Weakness Psychiatric: Reports: No Symptoms. Denies: Confusion, Depression, Anxiety, Agitation, Hallucinations - Patient Data Vitals - Most Recent: Last Vital Signs Temp 36.5 C 10/02/18 07:25 Pulse 81 10/02/18 07:25 Resp 18 10/02/18 07:25 BP 94/54 L 10/02/18 07:25 Pulse Ox 98 10/02/18 07:25 Vital Signs - 24 hr 10/01/18 10/01/18 10/01/18 09:09 09:11 09:17 Temperature [ Oral] Temperature [ 37.5 C 37.7 C Temporal] Pulse, 116 H 108 H Peripheral [ Pulse Oximetry] Respiratory 20 18 Rate Blood Pressure 137/73 110/61 [Left Upper Arm ] O2 Sat by Pulse 100 100 Oximetry O2 Sat by Pulse 100 Oximetry [Room Air] 10/01/18 10/01/18 10/01/18 09:32 09:50 10:09 Temperature [ Oral] Temperature [ 37.7 C Temporal] Pulse, 102 H 95 98 Peripheral [ Pulse Oximetry] Respiratory 18 20 20 Rate Blood Pressure 103/53 L 102/60 104/60 [Left Upper Arm ] O2 Sat by Pulse 100 100 98 Oximetry O2 Sat by Pulse Oximetry [Room Air] 10/01/18 10/01/18 10/01/18 10:35 11:00 12:00 Temperature [ Oral] Temperature [ 37.6 C Temporal] Pulse, 98 100 99 Peripheral [ Pulse Oximetry] Respiratory 18 18 20 Rate Blood Pressure 108/58 L 110/62 111/64 [Left Upper Arm ] O2 Sat by Pulse 99 100 99 Oximetry O2 Sat by Pulse Oximetry [Room Air] 10/01/18 10/01/18 10/01/18 12:59 13:13 18:00 Temperature [ 36.9 C Oral] Temperature [ 37.3 C Temporal] Pulse, 100 87 Peripheral [ Pulse Oximetry] Respiratory 20 15 Rate Blood Pressure 106/59 L 108/55 L [Left Upper Arm ] O2 Sat by Pulse 100 100 100 Oximetry O2 Sat by Pulse Oximetry [Room Air] 10/02/18 10/02/18 00:00 07:25 Temperature [ 37.1 C 36.5 C Oral] Temperature [ Temporal] Pulse, 87 81 Peripheral [ Pulse Oximetry] Respiratory 18 18 Rate Blood Pressure 102/50 L 94/54 L [Left Upper Arm ] O2 Sat by Pulse 98 98 Oximetry O2 Sat by Pulse Oximetry [Room Air] Weight - Most Recent: 61.825 kg I&O - Last 24 Hours: Intake & Output 10/01/18 10/02/18 10/02/18 22:59 06:59 14:59 Intake Total 540 615 Output Total 400 Balance 140 615 Imaging Impressions - Last 24 Hours: potline monitor shows normal sinus rhythm with heart rate in the 80s to 90s with no ectopy or arrhythmia Lab Results Last 24 Hours: Laboratory Results - last 24 hr 10/01/18 10/01/18 10/01/18 Range/Units 09:11 09:22 09:22 WBC 1.0 L* (4.0-10.2) K/uL RBC 4.57 (3.77-5.09) M/uL Hgb 13.0 (11.7-15.5) g/dL Hct 37.3 (34.0-46.0) % MCV 81.6 L (84.0-98.0) fL MCH 28.4 (28.2-33.3) pg MCHC 34.9 (31.7-36.0) g/dL RDW 13.5 (11.2-14.1) % Plt Count 166 (150-350) K/uL Neut % (Auto) 32.0 L (45.0-80.0) % Lymph % (Auto) 26.8 (10.0-50.0) % [place] % (Auto) 40.2 H (2.0-14.0) % Eos % (Auto) 0.0 (0.0-5.0) % Baso % (Auto) 1.0 (0.0-2.0) % Neut # (Auto) 0.31 L (1.40-7.00) K/uL Lymph # (Auto) 0.26 L (0.50-3.50) K/uL [place] # (Auto) 0.39 (0.00-1.00) K/uL Eos # (Auto) 0.00 (0.00-0.50) K/uL Baso # (Auto) 0.01 (0.00-0.20) K/uL PT 11.4 (9.5-12.0) SEC INR 1.1 APTT 33.3 H (21.0-31.3) SEC D-Dimer, Quantitative (0-400) ng/mL Sodium (136-145) mmol/L Potassium (3.5-5.1) mmol/L Chloride (98-107) mmol/L Carbon Dioxide (21.0-32.0) mmol/L BUN (7-18) mg/dL Creatinine (0.51-1.17) mg/dL Est Cr Clr Drug Dosing mL/min Estimated GFR (MDRD) mL/min Glucose (74-106) mg/dL Lactic Acid (0.4-2.0) mmol/L Calcium (8.5-10.1) mg/dL Magnesium (1.8-2.4) mg/dL Total Bilirubin (0.2-1.0) mg/dL AST (15-37) U/L ALT (12-78) U/L Alkaline Phosphatase (46-116) IU/L Creatine Kinase (26-308) U/L Creatine Kinase Index (0.0-2.5) % CK-MB (CK-2) (0.00-3.60) ng/mL Troponin I (0.000-0.056) ng/mL NT-Pro-B Natriuret Pep (0-125) pg/mL Total Protein (6.4-8.2) g/dL Albumin (3.4-5.0) g/dL TSH, Ultra Sensitive (0.358-3.740) mIU/mL HCG, Qual (NEGATIVE) Specimen Type Urincc Urine Color Yellow Urine Appearance Clear Urine pH 6.0 (5.0-9.0) Ur Specific [place] 1.010 (1.005-1.030) Urine Protein 30 H (NEGATIVE) mg/dL Urine Glucose (UA) Negative (NEGATIVE) mg/dL Urine Ketones 80 H (NEGATIVE) mg/dL Urine Occult Blood Trace-intact H (NEGATIVE) Urine Nitrite Negative (NEGATIVE) Urine Bilirubin Small H (NEGATIVE) Urine Urobilinogen 0.2 (0.2-1.0) E.U./dL Ur Leukocyte Esterase Negative (NEGATIVE) Urine RBC 0-5 /HPF Urine WBC 10-20 H /HPF Ur Epithelial Cells Occasional /LPF Urine Bacteria Moderate H (NONE TO FEW) /HPF Granular Casts Few H (NEGATIVE) /LPF Urinalysis Comment 10/01/18 10/01/18 10/01/18 Range/Units 09:22 09:22 09:22 WBC (4.0-10.2) K/uL RBC (3.77-5.09) M/uL Hgb (11.7-15.5) g/dL Hct (34.0-46.0) % MCV (84.0-98.0) fL MCH (28.2-33.3) pg MCHC (31.7-36.0) g/dL RDW (11.2-14.1) % Plt Count (150-350) K/uL Neut % (Auto) (45.0-80.0) % Lymph % (Auto) (10.0-50.0) % [place] % (Auto) (2.0-14.0) % Eos % (Auto) (0.0-5.0) % Baso % (Auto) (0.0-2.0) % Neut # (Auto) (1.40-7.00) K/uL Lymph # (Auto) (0.50-3.50) K/uL [place] # (Auto) (0.00-1.00) K/uL Eos # (Auto) (0.00-0.50) K/uL Baso # (Auto) (0.00-0.20) K/uL PT (9.5-12.0) SEC INR APTT (21.0-31.3) SEC D-Dimer, Quantitative 856 H (0-400) ng/mL Sodium 139 (136-145) mmol/L Potassium 2.3 L* (3.5-5.1) mmol/L Chloride 99 (98-107) mmol/L Carbon Dioxide 23.4 (21.0-32.0) mmol/L BUN 13 (7-18) mg/dL Creatinine 0.80 (0.51-1.17) mg/dL Est Cr Clr Drug Dosing 66.31 mL/min Estimated GFR (MDRD) > 60 mL/min Glucose 114 H (74-106) mg/dL Lactic Acid 2.0 (0.4-2.0) mmol/L Calcium 9.2 (8.5-10.1) mg/dL Magnesium 1.7 L (1.8-2.4) mg/dL Total Bilirubin 1.0 (0.2-1.0) mg/dL AST 17 (15-37) U/L ALT 26 (12-78) U/L Alkaline Phosphatase 65 (46-116) IU/L Creatine Kinase 9 L (26-308) U/L Creatine Kinase Index 3.3 H (0.0-2.5) % CK-MB (CK-2) 0.30 (0.00-3.60) ng/mL Troponin I 0.009 (0.000-0.056) ng/mL NT-Pro-B Natriuret Pep 282 H (0-125) pg/mL Total Protein 7.2 (6.4-8.2) g/dL Albumin 4.0 (3.4-5.0) g/dL TSH, Ultra Sensitive 1.911 (0.358-3.740) mIU/mL HCG, Qual (NEGATIVE) Specimen Type Urine Color Urine Appearance Urine pH (5.0-9.0) Ur Specific [place] (1.005-1.030) Urine Protein (NEGATIVE) mg/dL Urine Glucose (UA) (NEGATIVE) mg/dL Urine Ketones (NEGATIVE) mg/dL Urine Occult Blood (NEGATIVE) Urine Nitrite (NEGATIVE) Urine Bilirubin (NEGATIVE) Urine Urobilinogen (0.2-1.0) E.U./dL Ur Leukocyte Esterase (NEGATIVE) Urine RBC /HPF Urine WBC /HPF Ur Epithelial Cells /LPF Urine Bacteria (NONE TO FEW) /HPF Granular Casts (NEGATIVE) /LPF Urinalysis Comment 10/01/18 10/02/18 10/02/18 Range/Units 09:22 07:08 07:08 WBC 1.5 L* (4.0-10.2) K/uL RBC 3.76 L (3.77-5.09) M/uL Hgb 10.7 L D (11.7-15.5) g/dL Hct 32.0 L (34.0-46.0) % MCV 85.1 D (84.0-98.0) fL MCH 28.5 (28.2-33.3) pg MCHC 33.4 (31.7-36.0) g/dL RDW 13.8 (11.2-14.1) % Plt Count 123 L (150-350) K/uL Neut % (Auto) 49.6 (45.0-80.0) % Lymph % (Auto) 25.2 (10.0-50.0) % [place] % (Auto) 24.5 H (2.0-14.0) % Eos % (Auto) 0.0 (0.0-5.0) % Baso % (Auto) 0.7 (0.0-2.0) % Neut # (Auto) 0.73 L (1.40-7.00) K/uL Lymph # (Auto) 0.37 L (0.50-3.50) K/uL [place] # (Auto) 0.36 (0.00-1.00) K/uL Eos # (Auto) 0.00 (0.00-0.50) K/uL Baso # (Auto) 0.01 (0.00-0.20) K/uL PT (9.5-12.0) SEC INR APTT (21.0-31.3) SEC D-Dimer, Quantitative (0-400) ng/mL Sodium (136-145) mmol/L Potassium (3.5-5.1) mmol/L Chloride (98-107) mmol/L Carbon Dioxide (21.0-32.0) mmol/L BUN (7-18) mg/dL Creatinine (0.51-1.17) mg/dL Est Cr Clr Drug Dosing mL/min Estimated GFR (MDRD) mL/min Glucose (74-106) mg/dL Lactic Acid 0.8 (0.4-2.0) mmol/L Calcium (8.5-10.1) mg/dL Magnesium (1.8-2.4) mg/dL Total Bilirubin (0.2-1.0) mg/dL AST (15-37) U/L ALT (12-78) U/L Alkaline Phosphatase (46-116) IU/L Creatine Kinase (26-308) U/L Creatine Kinase Index (0.0-2.5) % CK-MB (CK-2) (0.00-3.60) ng/mL Troponin I (0.000-0.056) ng/mL NT-Pro-B Natriuret Pep (0-125) pg/mL Total Protein (6.4-8.2) g/dL Albumin (3.4-5.0) g/dL TSH, Ultra Sensitive (0.358-3.740) mIU/mL HCG, Qual Negative (NEGATIVE) Specimen Type Urine Color Urine Appearance Urine pH (5.0-9.0) Ur Specific [place] (1.005-1.030) Urine Protein (NEGATIVE) mg/dL Urine Glucose (UA) (NEGATIVE) mg/dL Urine Ketones (NEGATIVE) mg/dL Urine Occult Blood (NEGATIVE) Urine Nitrite (NEGATIVE) Urine Bilirubin (NEGATIVE) Urine Urobilinogen (0.2-1.0) E.U./dL Ur Leukocyte Esterase (NEGATIVE) Urine RBC /HPF Urine WBC /HPF Ur Epithelial Cells /LPF Urine Bacteria (NONE TO FEW) /HPF Granular Casts (NEGATIVE) /LPF Urinalysis Comment Laboratory Tests 10/01/18 10/01/18 10/01/18 Range/Units 09:11 09:22 09:22 WBC 1.0 L* (4.0-10.2) K/uL RBC 4.57 (3.77-5.09) M/uL Hgb 13.0 (11.7-15.5) g/dL Hct 37.3 (34.0-46.0) % MCV 81.6 L (84.0-98.0) fL MCH 28.4 (28.2-33.3) pg MCHC 34.9 (31.7-36.0) g/dL RDW 13.5 (11.2-14.1) % Plt Count 166 (150-350) K/uL Neut % (Auto) 32.0 L (45.0-80.0) % Lymph % (Auto) 26.8 (10.0-50.0) % [place] % (Auto) 40.2 H (2.0-14.0) % Eos % (Auto) 0.0 (0.0-5.0) % Baso % (Auto) 1.0 (0.0-2.0) % Neut # (Auto) 0.31 L (1.40-7.00) K/uL Lymph # (Auto) 0.26 L (0.50-3.50) K/uL [place] # (Auto) 0.39 (0.00-1.00) K/uL Eos # (Auto) 0.00 (0.00-0.50) K/uL Baso # (Auto) 0.01 (0.00-0.20) K/uL PT 11.4 (9.5-12.0) SEC INR 1.1 APTT 33.3 H (21.0-31.3) SEC D-Dimer, Quantitative (0-400) ng/mL Sodium (136-145) mmol/L Potassium (3.5-5.1) mmol/L Chloride (98-107) mmol/L Carbon Dioxide (21.0-32.0) mmol/L BUN (7-18) mg/dL Creatinine (0.51-1.17) mg/dL Est Cr Clr Drug Dosing mL/min Estimated GFR (MDRD) mL/min Glucose (74-106) mg/dL Lactic Acid (0.4-2.0) mmol/L Uric Acid (2.6-7.2) mg/dL Calcium (8.5-10.1) mg/dL Magnesium (1.8-2.4) mg/dL Total Bilirubin (0.2-1.0) mg/dL AST (15-37) U/L ALT (12-78) U/L Alkaline Phosphatase (46-116) IU/L Creatine Kinase (26-308) U/L Creatine Kinase Index (0.0-2.5) % CK-MB (CK-2) (0.00-3.60) ng/mL Troponin I (0.000-0.056) ng/mL C-Reactive Protein (<=0.9) mg/dL NT-Pro-B Natriuret Pep (0-125) pg/mL Total Protein (6.4-8.2) g/dL Albumin (3.4-5.0) g/dL TSH, Ultra Sensitive (0.358-3.740) mIU/mL HCG, Qual (NEGATIVE) Specimen Type Urincc Urine Color Yellow Urine Appearance Clear Urine pH 6.0 (5.0-9.0) Ur Specific [place] 1.010 (1.005-1.030) Urine Protein 30 H (NEGATIVE) mg/dL Urine Glucose (UA) Negative (NEGATIVE) mg/dL Urine Ketones 80 H (NEGATIVE) mg/dL Urine Occult Blood Trace-intact H (NEGATIVE) Urine Nitrite Negative (NEGATIVE) Urine Bilirubin Small H (NEGATIVE) Urine Urobilinogen 0.2 (0.2-1.0) E.U./dL Ur Leukocyte Esterase Negative (NEGATIVE) Urine RBC 0-5 /HPF Urine WBC 10-20 H /HPF Ur Epithelial Cells Occasional /LPF Urine Bacteria Moderate H (NONE TO FEW) /HPF Granular Casts Few H (NEGATIVE) /LPF Urinalysis Comment 10/01/18 10/01/18 10/01/18 Range/Units 09:22 09:22 09:22 WBC (4.0-10.2) K/uL RBC (3.77-5.09) M/uL Hgb (11.7-15.5) g/dL Hct (34.0-46.0) % MCV (84.0-98.0) fL MCH (28.2-33.3) pg MCHC (31.7-36.0) g/dL RDW (11.2-14.1) % Plt Count (150-350) K/uL Neut % (Auto) (45.0-80.0) % Lymph % (Auto) (10.0-50.0) % [place] % (Auto) (2.0-14.0) % Eos % (Auto) (0.0-5.0) % Baso % (Auto) (0.0-2.0) % Neut # (Auto) (1.40-7.00) K/uL Lymph # (Auto) (0.50-3.50) K/uL [place] # (Auto) (0.00-1.00) K/uL Eos # (Auto) (0.00-0.50) K/uL Baso # (Auto) (0.00-0.20) K/uL PT (9.5-12.0) SEC INR APTT (21.0-31.3) SEC D-Dimer, Quantitative 856 H (0-400) ng/mL Sodium 139 (136-145) mmol/L Potassium 2.3 L* (3.5-5.1) mmol/L Chloride 99 (98-107) mmol/L Carbon Dioxide 23.4 (21.0-32.0) mmol/L BUN 13 (7-18) mg/dL Creatinine 0.80 (0.51-1.17) mg/dL Est Cr Clr Drug Dosing 66.31 mL/min Estimated GFR (MDRD) > 60 mL/min Glucose 114 H (74-106) mg/dL Lactic Acid 2.0 (0.4-2.0) mmol/L Uric Acid (2.6-7.2) mg/dL Calcium 9.2 (8.5-10.1) mg/dL Magnesium 1.7 L (1.8-2.4) mg/dL Total Bilirubin 1.0 (0.2-1.0) mg/dL AST 17 (15-37) U/L ALT 26 (12-78) U/L Alkaline Phosphatase 65 (46-116) IU/L Creatine Kinase 9 L (26-308) U/L Creatine Kinase Index 3.3 H (0.0-2.5) % CK-MB (CK-2) 0.30 (0.00-3.60) ng/mL Troponin I 0.009 (0.000-0.056) ng/mL C-Reactive Protein (<=0.9) mg/dL NT-Pro-B Natriuret Pep 282 H (0-125) pg/mL Total Protein 7.2 (6.4-8.2) g/dL Albumin 4.0 (3.4-5.0) g/dL TSH, Ultra Sensitive 1.911 (0.358-3.740) mIU/mL HCG, Qual (NEGATIVE) Specimen Type Urine Color Urine Appearance Urine pH (5.0-9.0) Ur Specific [place] (1.005-1.030) Urine Protein (NEGATIVE) mg/dL Urine Glucose (UA) (NEGATIVE) mg/dL Urine Ketones (NEGATIVE) mg/dL Urine Occult Blood (NEGATIVE) Urine Nitrite (NEGATIVE) Urine Bilirubin (NEGATIVE) Urine Urobilinogen (0.2-1.0) E.U./dL Ur Leukocyte Esterase (NEGATIVE) Urine RBC /HPF Urine WBC /HPF Ur Epithelial Cells /LPF Urine Bacteria (NONE TO FEW) /HPF Granular Casts (NEGATIVE) /LPF Urinalysis Comment 10/01/18 10/02/18 10/02/18 Range/Units 09:22 07:08 07:08 WBC 1.5 L* (4.0-10.2) K/uL RBC 3.76 L (3.77-5.09) M/uL Hgb 10.7 L D (11.7-15.5) g/dL Hct 32.0 L (34.0-46.0) % MCV 85.1 D (84.0-98.0) fL MCH 28.5 (28.2-33.3) pg MCHC 33.4 (31.7-36.0) g/dL RDW 13.8 (11.2-14.1) % Plt Count 123 L (150-350) K/uL Neut % (Auto) 49.6 (45.0-80.0) % Lymph % (Auto) 25.2 (10.0-50.0) % [place] % (Auto) 24.5 H (2.0-14.0) % Eos % (Auto) 0.0 (0.0-5.0) % Baso % (Auto) 0.7 (0.0-2.0) % Neut # (Auto) 0.73 L (1.40-7.00) K/uL Lymph # (Auto) 0.37 L (0.50-3.50) K/uL [place] # (Auto) 0.36 (0.00-1.00) K/uL Eos # (Auto) 0.00 (0.00-0.50) K/uL Baso # (Auto) 0.01 (0.00-0.20) K/uL PT (9.5-12.0) SEC INR APTT (21.0-31.3) SEC D-Dimer, Quantitative (0-400) ng/mL Sodium 138 (136-145) mmol/L Potassium 2.7 L* (3.5-5.1) mmol/L Chloride 101 (98-107) mmol/L Carbon Dioxide 29.9 (21.0-32.0) mmol/L BUN 6 L (7-18) mg/dL Creatinine 0.73 (0.51-1.17) mg/dL Est Cr Clr Drug Dosing 72.66 mL/min Estimated GFR (MDRD) > 60 mL/min Glucose 109 H (74-106) mg/dL Lactic Acid (0.4-2.0) mmol/L Uric Acid 2.0 L (2.6-7.2) mg/dL Calcium 7.9 L (8.5-10.1) mg/dL Magnesium (1.8-2.4) mg/dL Total Bilirubin 0.5 (0.2-1.0) mg/dL AST 11 L (15-37) U/L ALT 19 (12-78) U/L Alkaline Phosphatase 48 (46-116) IU/L Creatine Kinase (26-308) U/L Creatine Kinase Index (0.0-2.5) % CK-MB (CK-2) (0.00-3.60) ng/mL Troponin I (0.000-0.056) ng/mL C-Reactive Protein 6.4 H (<=0.9) mg/dL NT-Pro-B Natriuret Pep (0-125) pg/mL Total Protein 5.3 L (6.4-8.2) g/dL Albumin 2.7 L (3.4-5.0) g/dL TSH, Ultra Sensitive (0.358-3.740) mIU/mL HCG, Qual Negative (NEGATIVE) Specimen Type Urine Color Urine Appearance Urine pH (5.0-9.0) Ur Specific [place] (1.005-1.030) Urine Protein (NEGATIVE) mg/dL Urine Glucose (UA) (NEGATIVE) mg/dL Urine Ketones (NEGATIVE) mg/dL Urine Occult Blood (NEGATIVE) Urine Nitrite (NEGATIVE) Urine Bilirubin (NEGATIVE) Urine Urobilinogen (0.2-1.0) E.U./dL Ur Leukocyte Esterase (NEGATIVE) Urine RBC /HPF Urine WBC /HPF Ur Epithelial Cells /LPF Urine Bacteria (NONE TO FEW) /HPF Granular Casts (NEGATIVE) /LPF Urinalysis Comment 10/02/18 Range/Units 07:08 WBC (4.0-10.2) K/uL RBC (3.77-5.09) M/uL Hgb (11.7-15.5) g/dL Hct (34.0-46.0) % MCV (84.0-98.0) fL MCH (28.2-33.3) pg MCHC (31.7-36.0) g/dL RDW (11.2-14.1) % Plt Count (150-350) K/uL Neut % (Auto) (45.0-80.0) % Lymph % (Auto) (10.0-50.0) % [place] % (Auto) (2.0-14.0) % Eos % (Auto) (0.0-5.0) % Baso % (Auto) (0.0-2.0) % Neut # (Auto) (1.40-7.00) K/uL Lymph # (Auto) (0.50-3.50) K/uL [place] # (Auto) (0.00-1.00) K/uL Eos # (Auto) (0.00-0.50) K/uL Baso # (Auto) (0.00-0.20) K/uL PT (9.5-12.0) SEC INR APTT (21.0-31.3) SEC D-Dimer, Quantitative (0-400) ng/mL Sodium (136-145) mmol/L Potassium (3.5-5.1) mmol/L Chloride (98-107) mmol/L Carbon Dioxide (21.0-32.0) mmol/L BUN (7-18) mg/dL Creatinine (0.51-1.17) mg/dL Est Cr Clr Drug Dosing mL/min Estimated GFR (MDRD) mL/min Glucose (74-106) mg/dL Lactic Acid 0.8 (0.4-2.0) mmol/L Uric Acid (2.6-7.2) mg/dL Calcium (8.5-10.1) mg/dL Magnesium (1.8-2.4) mg/dL Total Bilirubin (0.2-1.0) mg/dL AST (15-37) U/L ALT (12-78) U/L Alkaline Phosphatase (46-116) IU/L Creatine Kinase (26-308) U/L Creatine Kinase Index (0.0-2.5) % CK-MB (CK-2) (0.00-3.60) ng/mL Troponin I (0.000-0.056) ng/mL C-Reactive Protein (<=0.9) mg/dL NT-Pro-B Natriuret Pep (0-125) pg/mL Total Protein (6.4-8.2) g/dL Albumin (3.4-5.0) g/dL TSH, Ultra Sensitive (0.358-3.740) mIU/mL HCG, Qual (NEGATIVE) Specimen Type Urine Color Urine Appearance Urine pH (5.0-9.0) Ur Specific [place] (1.005-1.030) Urine Protein (NEGATIVE) mg/dL Urine Glucose (UA) (NEGATIVE) mg/dL Urine Ketones (NEGATIVE) mg/dL Urine Occult Blood (NEGATIVE) Urine Nitrite (NEGATIVE) Urine Bilirubin (NEGATIVE) Urine Urobilinogen (0.2-1.0) E.U./dL Ur Leukocyte Esterase (NEGATIVE) Urine RBC /HPF Urine WBC /HPF Ur Epithelial Cells /LPF Urine Bacteria (NONE TO FEW) /HPF Granular Casts (NEGATIVE) /LPF Urinalysis Comment Kye Results Last 24 Hours: Microbiology 10/01/18 09:15 Quick Strep Confirmation Culture - Preliminary Throat NO GROUP A STREP ISOLATED Group A Streptococcus Rapid Screen - Final NEGATIVE STREP A SCREEN 10/01/18 09:11 Urine Culture - Preliminary Urine, Voided NO GROWTH AFTER 1 DAY 10/01/18 09:15 Influenza Type A Antigen Screen - Final Nasal Aspirate, Left NEGATIVE INFLUENZA A VIRUS AG Influenza Type B Antigen Screen - Final NEGATIVE INFLUENZA B VIRUS AG Med Orders - Current: Current Medications Acetaminophen (Tylenol) 650 mg PO Q4H PRN PRN Reason: Pain Last Admin: 10/01/18 19:44 Dose: 650 mg Albuterol (Proventil Neb Soln) 2.5 mg NEB Q2H PRN PRN Reason: Dyspnea Albuterol/Ipratropium (Duoneb 3.0-0.5 Mg/3 Ml) 3 ml NEB Q4HRRT PRN PRN Reason: Dyspnea Famciclovir (Famciclovir) 500 mg PO TID [facility] Last Admin: 10/02/18 08:26 Dose: 500 mg Gentian Madeline (Gentian Madeline) 2 ml TOP BID [facility] Last Admin: 10/02/18 08:24 Dose: 1 applic Potassium Chloride/Dextrose/Sod Cl (D5 1/2 Ns W/ 20 Meq/L Kcl) 1,000 mls @ 100 mls/hr IV ASDIRECTED [facility] Last Admin: 10/02/18 03:31 Dose: 100 mls/hr Levofloxacin/Dextrose 500 mg/ (Premix) 100 mls @ 100 mls/hr IV Q24H [facility] Piperacillin Sod/Tazobactam (Sod 3.375 gm/ Sodium Chloride) 100 mls @ 200 mls/ hr IV Q6H [facility] Last Admin: 10/02/18 08:27 Dose: 200 mls/hr Ibuprofen (Motrin) 400 mg PO Q6H PRN PRN Reason: Pain Last Admin: 10/02/18 00:41 Dose: 400 mg Lactobacillus Rhamnosus (Culturelle) 2 cap PO TID [facility] Last Admin: 10/02/18 08:25 Dose: 2 cap Lidocaine HCl (Xylocaine 2% Viscous) 2 ml PO Q2H PRN PRN Reason: Oral pain Last Admin: 10/01/18 19:45 Dose: 2 ml Melatonin (Melatonin) 3 mg PO BEDTIME [facility] Last Admin: 10/01/18 19:43 Dose: 3 mg Non-Formulary Medication (Nf Drug) each TOP ASDIRECTED MIRTHA Sodium Chloride (Saline Flush) 10 ml FLUSH ASDIRECTED PRN PRN Reason: Keep Vein Open Last Admin: 10/01/18 16:02 Dose: 10 ml Sodium Chloride (Saline Flush) 10 ml FLUSH Q12HR [facility] Last Admin: 10/02/18 08:27 Dose: 10 ml Temazepam (Restoril) 15 mg PO BEDTIME PRN PRN Reason: Insomnia Last Admin: 10/02/18 00:42 Dose: 15 mg Tramadol HCl (Ultram) 50 mg PO Q6H PRN PRN Reason: Pain Last Admin: 10/02/18 01:47 Dose: 50 mg Zinc Gluconate (Zinc) 50 mg PO DAILY [facility] Last Admin: 10/02/18 08:25 Dose: 50 mg Discontinued Medications Acetaminophen (Tylenol) 650 mg PO ONETIME ONE Stop: 10/01/18 09:11 Last Admin: 10/01/18 09:26 Dose: 650 mg Budesonide (Pulmicort) 0.5 mg NEB BIDRT [facility] Lactated Ringer's (Ringers, Lactated) 1,000 mls @ 999 mls/hr IV .BOLUS ONE Stop: 10/01/18 10:50 Last Admin: 10/01/18 09:50 Dose: 999 mls/hr Levofloxacin/Dextrose 500 mg/ (Premix) 100 mls @ 100 mls/hr IV ONETIME ONE Stop: 10/01/18 12:32 Last Admin: 10/01/18 11:49 Dose: 100 mls/hr Iopamidol (Isovue-370 (76%)) 100 ml IVPUSH ONETIME ONE Stop: 10/01/18 13:01 Last Admin: 10/01/18 11:26 Dose: 100 ml Ondansetron HCl (Zofran) 4 mg IVPUSH ONETIME ONE Stop: 10/01/18 10:21 Last Admin: 10/01/18 10:38 Dose: 4 mg Pegfilgrastim (Neulasta) 6 mg SUBCUT ONETIME ONE Stop: 10/01/18 13:26 Last Admin: 10/01/18 16:02 Dose: 6 mg Potassium Chloride (Klor-Con M20) 40 meq PO ONETIME ONE Stop: 10/01/18 10:11 Last Admin: 10/01/18 10:38 Dose: 40 meq - Exam Quality Assessment: DVT Prophylaxis. No: Supplemental Oxygen, Central Line/PICC , Urine Catheter, Skin Breakdown, Restraints General: Alert, Oriented, Cooperative, No Acute Distress HEENT: Pupils Equal, Pupils Reactive, EOMI, Mucous Membr. Moist/[place], Other ( Moderate diffuse oral stomatitis with current gentian madeline treatment and pain under good control) Neck: Supple, No JVD, No Thyromegaly. No: Lymphadenopathy Lungs: Clear to Auscultation, Normal Respiratory Effort. No: Rub Cardiovascular: Regular Rate, Regular Rhythm, No Murmurs. No: Gallops, Rubs GI/Abdominal Exam: Normal Bowel Sounds, Soft, Non-Tender, No Organomegaly, No Distention, No Abnormal Bruit, No Mass, Pelvis Stable. No: Guarding (Female) Exam: Deferred Back Exam: Normal Inspection, Full Range of Motion. No: CVA Tenderness (L), CVA Tenderness (R), Muscle Spasm Extremities: Normal Inspection, Normal Range of Motion, Non-Tender, No Pedal Edema, Normal Capillary Refill. No: Rose's Sign Peripheral Pulses: 2+: Radial (L), Dorsalis Pedis (L), Dorsalis Pedis (R) Skin: Rash (Oral stomatitis as above with improving perirectal lesions by patient history) Wound/Incisions: Healing Well (As above with current gentian madeline treatment) Neurological: No New Focal Deficit Psy/Mental Status: Alert, Normal Affect, Normal Mood. No: Agitated, Hallucinations, Withdrawal Symptoms - Problem List & Annotations (1) Dermatitis SNOMED Code(s): 781566751 Code(s): L30.9 - DERMATITIS, UNSPECIFIED Status: Acute Priority: High Current Visit: Yes Onset Date: 10/01/18 Annotation/Comment:: Patient's oral stomatitis and perirectal ulcers have responded well to current medical therapy. CARLOS Trujillo, from [facility] [place] in [place] is updated on 3/2 concerning patient's admission, planned workup, etc. Per history HIV and oral viral cultures are still pending with these drawn in their office prior to patient's admission. Telephone consultation at 11:15 hours on 10/01/[address] Strange , manufacturing development engineer from [facility], cell phone #[phone], who is in agreement with our treatment plan. CellCept will not be initiated per his instructions with patient to be declared intolerant to this medication secondary to her severe leukopenia. He is in agreement with possible oral steroid therapy after her leukopenia is improved/resolves this to be prescribed at discharge. He is also in agreement with plan of Neulasta injection. Close follow-up on an outpatient basis. Note recent prescription for Famvir and Ultram by [facility] [place]. (2) Leukopenia SNOMED Code(s): 42445024, 214398363 Code(s): D72.819 - DECREASED WHITE BLOOD CELL COUNT, UNSPECIFIED Status: Acute Priority: High Current Visit: Yes Onset Date: 10/01/18 Qualifiers: Leukopenia type: neutropenia Neutropenia type: other drug-induced Qualified Code(s): D70.2 - Other drug-induced agranulocytosis Annotation/Comment:: As above. Initiate the antibiotic therapy, Neulasta, and isolation precautions. Hemeoncology consultation depending on her clinical course (3) Dehydration SNOMED Code(s): 76768725 Code(s): E86.0 - DEHYDRATION Status: Acute Priority: High Current Visit : Yes Onset Date: 10/01/18 Annotation/Comment:: Dehydration resolved with current IV fluids with continuation of IV fluids for now secondary to persistent hypokalemia and suboptimal oral intake. Diet to be adjusted/advance today. Note dehydration and tachycardia on admission secondary to anorexia and oral pain from her oral ulcers/stomatitis. Aggressive IV hydration started the emergency room and during the initial phases of this hospitalization. (4) D-dimer, elevated SNOMED Code(s): 381472638 Code(s): R79.89 - OTHER SPECIFIED ABNORMAL FINDINGS OF BLOOD CHEMISTRY Status: Acute Priority: High Current Visit: Yes Onset Date: 10/01/18 Annotation/Comment:: CTA results of the chest negative for PE on admission as above. Venous Doppler studies of the lower extremities (preliminary verbal report from denture laboratory technician) on 10/01/18 was negative. No Clinical evidence of PE or DVT with Lovenox therapy not initiated, however continuation of other DVT precautions. (5) Hypomagnesemia SNOMED Code(s): 697055376 Code(s): E83.42 - HYPOMAGNESEMIA Status: Acute Priority: Medium Current Visit: Yes Onset Date: 10/01/18 Annotation/Comment:: Initiated magnesium oxide therapy on admission with repeat blood work in the a.m. (6) Mixed anxiety depressive disorder SNOMED Code(s): 723937479 Code(s): F41.8 - OTHER SPECIFIED ANXIETY DISORDERS Status: Chronic Priority: Medium Current Visit: Yes Annotation/Comment:: Moderate control based on today's exam, however improved at admission and during this hospitalization. (7) Osteoarthritis SNOMED Code(s): 210477688 Code(s): M19.90 - UNSPECIFIED OSTEOARTHRITIS, UNSPECIFIED SITE Status: Chronic Priority: Medium Current Visit: Yes Qualifiers: Osteoarthritis location: multiple joints Osteoarthritis type: primary Qualified Code(s): M15.0 - Primary generalized (osteo)arthritis Annotation/Comment:: Stable by history. Secondary to refractory rash uric acid level, RICHI, CRP, and rheumatoid factor were drawn on 10/02. (8) Tachycardia SNOMED Code(s): 8325371 Code(s): R00.0 - TACHYCARDIA, UNSPECIFIED Status: Acute Priority: High Current Visit: Yes Onset Date: 10/01/18 Annotation/Comment:: Resolved prior to admission with IV fluids. No chest pain or anginal type symptoms. (9) Hypokalemia SNOMED Code(s): 97106079 Code(s): E87.6 - HYPOKALEMIA Status: Acute Priority: High Current Visit : Yes Onset Date: 10/02/18 Annotation/Comment:: Newly diagnosed on admission with no known etiology. Oral potassium chloride supplementation given yesterday with additional IV fluids as above and persistent hypokalemia this morning. Initiate regular potassium chloride supplementation with close observation of her renal function, etc. - Problem List Review Problem List Initiated/Reviewed/Updated: Yes - My Orders Last 24 Hours: My Active Orders 10/01/18 09:10 Sodium Chloride 0.9% [Saline Flush] 10 ml FLUSH ASDIRECTED PRN Resuscitation Status Routine 10/01/18 09:11 Cardiac Monitoring [RC] Q2HR Communication Order [RC] ROUTINE Chest 2V [CR] Stat CULTURE SPUTUM + SMEAR [RM] Urgent CULTURE URINE [RM] Routine Blood Culture x2 Reflex Set [OM.PC] Stat Peripheral IV Insertion Adult [OM.PC] Stat 10/01/18 09:12 Peripheral IV Care [RC] . DIRECTED 10/01/18 09:15 CULTURE STREP A CONFIRMATION [RM] Stat STREP SCRN A RAPID W CULT CONF [RM] Stat 10/01/18 09:22 CULTURE BLOOD [BC] Stat 10/01/18 09:40 CULTURE BLOOD [BC] Stat 10/01/18 10:39 Chest PE [Ang Chest] [CT] Stat 10/01/18 11:15 D5 1/2 NS w/ 20 mEq/L KCl 1,000 ml IV ASDIRECTED 10/01/18 13:12 traMADol [Ultram] 50 mg PO Q6H PRN 10/01/18 13:13 Antiembolic Devices [RC] 08,20 Height and Weight [RC] DAILY Intake and Output Strict [RC] QSHIFT Oxygen Therapy [RC] 2300 Pulse Oximetry [RC] ASDIRECTED OCCULT BLOOD DIAGNOSTIC [OP] Routine Albuterol/Ipratropium [DuoNeb 3.0-0.5 MG/3 ML] 3 ml NEB Q4HRRT PRN Temazepam [Restoril] 15 mg PO BEDTIME PRN DVT/VTE Prophylaxis Reflex [OM.PC] Routine GM Immunization Reflex [OM.PC] Click To Edit 10/01/18 13:14 Antiembolic Devices [RC] .Routine Communication, Vaccine [RC] PER UNIT ROUTINE VTE/DVT Education [RC] PER UNIT ROUTINE Vaccines to be Administered [RC] PER UNIT ROUTINE 10/01/18 13:15 Non-Formulary Medication [NF Drug] DOSE each TOP ASDIRECTED 10/01/18 13:17 CULTURE URINE [RM] Routine 10/01/18 13:18 Venous Doppler Lwr Ext Bi [US] Urgent 10/01/18 13:19 Lidocaine 2% [Xylocaine 2% Viscous] 2 ml PO Q2H PRN 10/01/18 13:30 Gentian Madeline 2 ml TOP BID 10/01/18 14:00 Acetaminophen [Tylenol] 650 mg PO Q4H PRN Albuterol [Proventil Neb Soln] 2.5 mg NEB Q2H PRN Ibuprofen [Motrin] 400 mg PO Q6H PRN Piperacillin/Tazobactam [Zosyn] 3.375 gm Sodium Chloride 0.9% [Normal Saline] 100 ml IV Q6H 10/01/18 16:00 Vital Signs [RC] Q6HR 10/01/18 18:00 Famciclovir 500 mg PO TID Lactobacillus Rhamnosus GG [Culturelle] 2 cap PO TID 10/01/18 20:00 Melatonin 3 mg PO BEDTIME Sodium Chloride 0.9% [Saline Flush] 10 ml FLUSH Q12HR 10/01/18 Lunch Full Liquid Diet [DIET] 10/02/18 07:08 RICHI W/RFX TO ALL IF POSITIVE [REF] Routine COMPREHENSIVE METABOLIC PN,CMP [CHEM] Routine CRP [C-REACTIVE PROTEIN] [CHEM] Routine RHEUMATOID FACTOR [REF] Routine URIC ACID [CHEM] Routine 10/02/18 08:00 Zinc Gluconate [Zinc] 50 mg PO DAILY 10/02/18 13:00 Levofloxacin/Dextrose 5%-Water [Levaquin in D5W 500 MG/100 ML] 500 mg Premix Bag 1 bag IV Q24H - Assessment Assessment:: As above - Plan Plan:: As above. Extensive precautions were given to the patient, who is in agreement with the treatment plan. Lu kemp physician assumes care later this evening with patient's care to be transferred to [facility] [place] in the a.m. on 10/04. CARLOS Trujillo, from [facility] [place] in [place] was updated today as above.
[2018-10-02 08:53] LABS: CHLORIDE,CL 101 mmol/L (98-107); SODIUM,NA 138 mmol/L (136-145)
[2018-10-02] MEDS: Lidocaine 2% Viscous Solution 15 ML Cup PO PRN (09:26)
[2018-10-02] MEDS: Magnesium Oxide 400 MG Tab PO SCH ×2 (11:48→17:20)
[2018-10-02] MEDS: Potassium Chloride 20 MEQ Tab.ER PO SCH ×3 (11:50→17:19)
[2018-10-02] MEDS ORDERED: Levofloxacin/Dextrose 5%-Water 500 MG in Premix Bag 1 BAG IV SCH (13:00)
[2018-10-02] MEDS: Sodium Chloride 0.9% 10 ML Syringe FLUSH PRN ×2 (14:16→15:22)
[2018-10-02] MEDS ORDERED: Ondansetron 4 MG/2 ML SDV IVPUSH PRN (15:06)
[2018-10-02] MEDS: Acetaminophen 325 MG Tab PO PRN (17:20)
[2018-10-02] MEDS: Melatonin 3 MG Tab PO SCH (19:22)
[2018-10-03] MEDS: Piperacillin/Tazobactam 3.375 GM in Sodium Chloride 0.9% 100 ML IV SCH ×4 (09:12→19:53)
[2018-10-03] MEDS: Lactobacillus Rhamnosus GG (Probiotic) Cap PO SCH ×3 (09:13→17:55)
[2018-10-03] MEDS: Gentian Violet 59 ML Bottle TOP SCH ×2 (09:13→17:54)
[2018-10-03] MEDS: Potassium Chloride 20 MEQ Tab.ER PO SCH ×3 (09:14→17:55)
[2018-10-03] MEDS: Magnesium Oxide 400 MG Tab PO SCH ×2 (09:14→17:56)
[2018-10-03] MEDS: Sodium Chloride 0.9% 10 ML Syringe FLUSH SCH ×2 (09:14→19:53)
[2018-10-03] MEDS: Zinc (Zinc Gluconate) 50 MG Tab PO SCH (09:14)
[2018-10-03 09:19] LABS: CHLORIDE,CL 102 mmol/L (98-107); SODIUM,NA 138 mmol/L (136-145)
[2018-10-03] MEDS: Ibuprofen 200 MG Tab PO PRN ×2 (11:58→20:27)
[2018-10-03] MEDS: Acetaminophen 325 MG Tab PO PRN (11:59)
[2018-10-03] MEDS: Sodium Chloride 0.9% 10 ML Syringe FLUSH PRN ×3 (14:43→16:21)
--- NOTE | 2018-10-03 15:02 | PCM.PN ---
- General Info Date of Service: 10/03/18 Admission Dx/Problem (Free Text): 1. Leukopenia 2. 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 Functional Status: Reports: Pain Controlled, Tolerating Diet, Ambulating, Urinating, Incentive Spirometry. Denies: New Symptoms - Review of Systems General: Denies: Fever, Weakness, Fatigue, Chills, Night Sweats HEENT: Reports: Headaches (varies in position and intensity), Other (has canker type sores inside lip, roof of mouth, tongue). Denies: Sinus Congestion, Sore Throat, Rhinitis Pulmonary: Reports: No Symptoms Cardiovascular: Reports: No Symptoms Gastrointestinal: Reports: No Symptoms Genitourinary: Reports: No Symptoms Musculoskeletal: Reports: Other (complains of always having tight muscles in neck) Skin: Reports: Other (canker sores in mouth, similar sores in rectal area) Neurological: Reports: Headache. Denies: Numbness, Paresthesia, Syncope, Tingling, Trouble Speaking, Difficulty Walking, Weakness, Change in Speech Psychiatric: Reports: No Symptoms - Patient Data Vitals - Most Recent: Last Vital Signs Temp 36.8 C 10/03/18 11:55 Pulse 88 10/03/18 11:55 Resp 18 10/03/18 11:55 BP 100/61 10/03/18 11:55 Pulse Ox 99 10/03/18 11:55 Weight - Most Recent: 61.825 kg I&O - Last 24 Hours: Intake & Output 10/02/18 10/03/18 10/03/18 22:59 06:59 14:59 Intake Total 833 770 Output Total 200 900 Balance 633 -130 Lab Results Last 24 Hours: Laboratory Results - last 24 hr 10/03/18 10/03/18 Range/Units 07:20 07:20 WBC 4.1 (4.0-10.2) K/uL RBC 3.84 (3.77-5.09) M/uL Hgb 10.9 L (11.7-15.5) g/dL Hct 32.8 L (34.0-46.0) % MCV 85.4 (84.0-98.0) fL MCH 28.4 (28.2-33.3) pg MCHC 33.2 (31.7-36.0) g/dL RDW 13.4 (11.2-14.1) % Plt Count 120 L (150-350) K/uL Neut % (Auto) 61.6 (45.0-80.0) % Lymph % (Auto) 20.8 (10.0-50.0) % [place] % (Auto) 17.1 H (2.0-14.0) % Eos % (Auto) 0.0 (0.0-5.0) % Baso % (Auto) 0.5 (0.0-2.0) % Neut # (Auto) 2.55 (1.40-7.00) K/uL Lymph # (Auto) 0.86 (0.50-3.50) K/uL [place] # (Auto) 0.71 (0.00-1.00) K/uL Eos # (Auto) 0.00 (0.00-0.50) K/uL Baso # (Auto) 0.02 (0.00-0.20) K/uL Sodium 138 (136-145) mmol/L Potassium 3.4 L (3.5-5.1) mmol/L Chloride 102 (98-107) mmol/L Carbon Dioxide 29.8 (21.0-32.0) mmol/L BUN 2 L (7-18) mg/dL Creatinine 0.69 (0.51-1.17) mg/dL Est Cr Clr Drug Dosing 76.88 mL/min Estimated GFR (MDRD) > 60 mL/min Glucose 108 H (74-106) mg/dL Calcium 8.1 L (8.5-10.1) mg/dL Magnesium 1.7 L (1.8-2.4) mg/dL C-Reactive Protein 3.2 H (<=0.9) mg/dL Kye Results Last 24 Hours: Microbiology 10/01/18 09:11 Urine Culture - Final Urine, Voided NO GROWTH AFTER 2 DAYS 10/01/18 09:15 Quick Strep Confirmation Culture - Final Throat NO GROUP A STREP ISOLATED Group A Streptococcus Rapid Screen - Final NEGATIVE STREP A SCREEN 10/01/18 09:40 Aerobic Blood Culture - Preliminary Blood - Venous - Lab Draw NO GROWTH AFTER 2 DAYS Anaerobic Blood Culture - Preliminary NO GROWTH AFTER 2 DAYS 10/01/18 09:22 Aerobic Blood Culture - Preliminary Blood - Venous NO GROWTH AFTER 2 DAYS Anaerobic Blood Culture - Preliminary NO GROWTH AFTER 2 DAYS Med Orders - Current: Current Medications Acetaminophen (Tylenol) 650 mg PO Q4H PRN PRN Reason: Pain Last Admin: 10/03/18 11:59 Dose: 650 mg Albuterol (Proventil Neb Soln) 2.5 mg NEB Q2H PRN PRN Reason: Dyspnea Albuterol/Ipratropium (Duoneb 3.0-0.5 Mg/3 Ml) 3 ml NEB Q4HRRT PRN PRN Reason: Dyspnea Famciclovir (Famciclovir) 500 mg PO TID [facility] Last Admin: 10/03/18 12:01 Dose: 500 mg Gentian Madeline (Gentian Madeline) 2 ml TOP BID [facility] Last Admin: 10/03/18 09:13 Dose: Not Given Potassium Chloride/Dextrose/Sod Cl (D5 1/2 Ns W/ 20 Meq/L Kcl) 1,000 mls @ 50 mls/hr IV ASDIRECTED [facility] Last Admin: 10/02/18 14:53 Dose: 100 mls/hr Piperacillin Sod/Tazobactam (Sod 3.375 gm/ Sodium Chloride) 100 mls @ 200 mls/ hr IV Q6H [facility] Last Admin: 10/03/18 14:42 Dose: 200 mls/hr Ibuprofen (Motrin) 400 mg PO Q6H PRN PRN Reason: Pain Last Admin: 10/03/18 11:58 Dose: 400 mg Lactobacillus Rhamnosus (Culturelle) 2 cap PO TID [facility] Last Admin: 10/03/18 12:06 Dose: 2 cap Lidocaine HCl (Xylocaine 2% Viscous) 2 ml PO Q2H PRN PRN Reason: Oral pain Last Admin: 10/02/18 09:26 Dose: 2 ml Magnesium Oxide (Magnesium Oxide) 400 mg PO BID [facility] Last Admin: 10/03/18 09:14 Dose: Not Given Melatonin (Melatonin) 3 mg PO BEDTIME [facility] Last Admin: 10/02/18 19:22 Dose: 3 mg Non-Formulary Medication (Nf Drug) each TOP ASDIRECTED [facility] Ondansetron HCl (Zofran) 4 mg IVPUSH Q6H PRN PRN Reason: Nausea/Vomiting Last Admin: 10/02/18 15:22 Dose: 4 mg Potassium Chloride (Klor-Con M20) 20 meq PO TID [facility] Last Admin: 10/03/18 11:59 Dose: 20 meq Sodium Chloride (Saline Flush) 10 ml FLUSH ASDIRECTED PRN PRN Reason: Keep Vein Open Last Admin: 10/03/18 14:43 Dose: 10 ml Sodium Chloride (Saline Flush) 10 ml FLUSH Q12HR [facility] Last Admin: 10/03/18 09:14 Dose: Not Given Temazepam (Restoril) 15 mg PO BEDTIME PRN PRN Reason: Insomnia Last Admin: 10/02/18 00:42 Dose: 15 mg Tramadol HCl (Ultram) 50 mg PO Q6H PRN PRN Reason: Pain Last Admin: 10/02/18 17:21 Dose: 50 mg Zinc Gluconate (Zinc) 50 mg PO DAILY [facility] Last Admin: 10/03/18 09:14 Dose: Not Given Discontinued Medications Acetaminophen (Tylenol) 650 mg PO ONETIME ONE Stop: 10/01/18 09:11 Last Admin: 10/01/18 09:26 Dose: 650 mg Budesonide (Pulmicort) 0.5 mg NEB BIDRT [facility] Lactated Ringer's (Ringers, Lactated) 1,000 mls @ 999 mls/hr IV .BOLUS ONE Stop: 10/01/18 10:50 Last Admin: 10/01/18 09:50 Dose: 999 mls/hr Levofloxacin/Dextrose 500 mg/ (Premix) 100 mls @ 100 mls/hr IV ONETIME ONE Stop: 10/01/18 12:32 Last Admin: 10/01/18 11:49 Dose: 100 mls/hr Levofloxacin/Dextrose 500 mg/ (Premix) 100 mls @ 100 mls/hr IV Q24H [facility] Last Admin: 10/02/18 12:55 Dose: 100 mls/hr Iopamidol (Isovue-370 (76%)) 100 ml IVPUSH ONETIME ONE Stop: 10/01/18 13:01 Last Admin: 10/01/18 11:26 Dose: 100 ml Magnesium Sulfate/Dextrose (Magnesium 1 Gm In D5w 100 Ml) 1 gm IV ONETIME ONE Stop: 10/03/18 14:15 Ondansetron HCl (Zofran) 4 mg IVPUSH ONETIME ONE Stop: 10/01/18 10:21 Last Admin: 10/01/18 10:38 Dose: 4 mg Pegfilgrastim (Neulasta) 6 mg SUBCUT ONETIME ONE Stop: 10/01/18 13:26 Last Admin: 10/01/18 16:02 Dose: 6 mg Potassium Chloride (Klor-Con M20) 40 meq PO ONETIME ONE Stop: 10/01/18 10:11 Last Admin: 10/01/18 10:38 Dose: 40 meq - Exam Quality Assessment: DVT Prophylaxis General: Alert, Oriented, Cooperative HEENT: Pupils Equal, Pupils Reactive, EOMI, Mucous Membr. Moist/[place], Other ( Single canker sore tongue, inside lower lip, and roof of mouth, large, around 1cm across, no drainage) Neck: Supple Lungs: Clear to Auscultation, Normal Respiratory Effort Cardiovascular: Regular Rate, Regular Rhythm GI/Abdominal Exam: Normal Bowel Sounds, Soft, Non-Tender, No Distention (Female) Exam: Deferred Back Exam: Normal Inspection Extremities: Normal Inspection, Normal Range of Motion, Non-Tender, Normal Capillary Refill Peripheral Pulses: 2+: Radial (L), Radial (R) Skin: Warm, Dry Neurological: No New Focal Deficit Psy/Mental Status: Alert, Normal Affect, Normal Mood - Problem List & Annotations (1) Dehydration SNOMED Code(s): 18181919 Code(s): E86.0 - DEHYDRATION Status: Acute Priority: High Current Visit : Yes Onset Date: 10/01/18 Annotation/Comment:: Dehydration resolved with current IV fluids with continuation of IV fluids for now secondary to persistent hypokalemia and suboptimal oral intake. Diet adjusted/advanced. Note dehydration and tachycardia on admission secondary to anorexia and oral pain from her oral ulcers/stomatitis. Aggressive IV hydration started the emergency room and during the initial phases of this hospitalization. (2) Dermatitis SNOMED Code(s): 728001158 Code(s): L30.9 - DERMATITIS, UNSPECIFIED Status: Acute Priority: High Current Visit: Yes Onset Date: 10/01/18 Annotation/Comment:: Patient's oral stomatitis and perirectal ulcers have responded well to current medical therapy. CARLOS rTujillo, from [facility] [place] in [place] is updated on 10/02 concerning patient's admission, planned workup, etc. Per history HIV and oral viral cultures are still pending with these drawn in their office prior to patient's admission. Telephone consultation at 11:15 hours on 10/01/[address] Strange , stitcher operator from [facility], cell phone #[phone], who is in agreement with our treatment plan. CellCept will not be initiated per his instructions with patient to be declared intolerant to this medication secondary to her severe leukopenia. He is in agreement with possible oral steroid therapy after her leukopenia is improved/resolves this to be prescribed at discharge. He is also in agreement with plan of Neulasta injection. Close follow-up on an outpatient basis. Note recent prescription for Famvir and Ultram by [facility] [place]. (3) Hypokalemia SNOMED Code(s): 56243240 Code(s): E87.6 - HYPOKALEMIA Status: Acute Priority: High Current Visit : Yes Onset Date: 10/02/18 Annotation/Comment:: Newly diagnosed on admission with no known etiology. Recalls being she was told she was 'low' at derm appointment weeks ago. Improved today. Initiate regular potassium chloride supplementation with close observation of her renal function, etc. (4) Hypomagnesemia SNOMED Code(s): 664950967 Code(s): E83.42 - HYPOMAGNESEMIA Status: Acute Priority: Medium Current Visit: Yes Onset Date: 10/01/18 Annotation/Comment:: Initiated magnesium oxide therapy on admission. No improvement noted today. Single IV Magnesium dose ordered today. Recheck level in a.m. (5) Leukopenia SNOMED Code(s): 68649967, 514835191 Code(s): D72.819 - DECREASED WHITE BLOOD CELL COUNT, UNSPECIFIED Status: Acute Priority: High Current Visit: Yes Onset Date: 10/01/18 Qualifiers: Leukopenia type: neutropenia Neutropenia type: other drug-induced Qualified Code(s): D70.2 - Other drug-induced agranulocytosis Annotation/Comment:: Improved today s/p Neulasta. Isolation precautions. Heme oncology consultation depending on her clinical course (6) D-dimer, elevated SNOMED Code(s): 173069778 Code(s): R79.89 - OTHER SPECIFIED ABNORMAL FINDINGS OF BLOOD CHEMISTRY Status: Acute Priority: High Current Visit: Yes Onset Date: 10/01/18 Annotation/Comment:: CTA results of the chest negative for PE on admission as above. Venous Doppler studies of the lower extremities (preliminary verbal report from semiconductor lab technician) on 10/01/18 was negative. No Clinical evidence of PE or DVT with Lovenox therapy not initiated, however continuation of other DVT precautions. (7) Tachycardia SNOMED Code(s): 9972553 Code(s): R00.0 - TACHYCARDIA, UNSPECIFIED Status: Acute Priority: High Current Visit: Yes Onset Date: 10/01/18 Annotation/Comment:: Resolved prior to admission with IV fluids. No chest pain or anginal type symptoms. (8) Mixed anxiety depressive disorder SNOMED Code(s): 815345577 Code(s): F41.8 - OTHER SPECIFIED ANXIETY DISORDERS Status: Chronic Priority: Medium Current Visit: Yes Annotation/Comment:: Moderate control based on today's exam, however improved at admission and during this hospitalization. (9) Osteoarthritis SNOMED Code(s): 226481500 Code(s): M19.90 - UNSPECIFIED OSTEOARTHRITIS, UNSPECIFIED SITE Status: Chronic Priority: Medium Current Visit: Yes Qualifiers: Osteoarthritis location: multiple joints Osteoarthritis type: primary Qualified Code(s): M15.0 - Primary generalized (osteo)arthritis Annotation/Comment:: Stable by history. Secondary to refractory rash uric acid level, RICHI, CRP, and rheumatoid factor were drawn on 10/02. - Problem List Review Problem List Initiated/Reviewed/Updated: Yes - My Orders Last 24 Hours: My Active Orders 10/04/18 05:11 FOLIC ACID [CHEM] AM VITAMIN B12 [CHEM] AM 10/04/18 05:15 BASIC METABOLIC PANEL,BMP [CHEM] AM CBC WITH AUTO DIFF [HEME] AM - Assessment Assessment:: As above. Patient was placed on both Zosyn and Levaquin initially to cover for potential of bacterial infection. Also receiving antivirals. No obvious bacterial component identified at this time. Will discontinue Levaquin at this time. Zosyn continued for now. - Plan Plan:: As above. Extensive precautions were given to the patient, who is in agreement with the treatment plan. Patient's care to be transferred to [facility] in the a.m. on 10/04. CARLOS Trujillo, from [facility] in [place] was updated today as well.
[2018-10-03] MEDS: D5 1/2 NS w/ 20 mEq/L KCl 1,000 ML IV SCH (16:19)
[2018-10-03] MEDS: Melatonin 3 MG Tab PO SCH (19:53)
[2018-10-03] MEDS: Loperamide 2 MG Tab PO PRN (20:27)
[2018-10-04] MEDS: Piperacillin/Tazobactam 3.375 GM in Sodium Chloride 0.9% 100 ML IV SCH ×3 (01:29→13:43)
[2018-10-04] MEDS: Sodium Chloride 0.9% 10 ML Syringe FLUSH PRN (01:30)
[2018-10-04] MEDS: Lactobacillus Rhamnosus GG (Probiotic) Cap PO SCH ×3 (07:51→17:34)
[2018-10-04] MEDS: Potassium Chloride 20 MEQ Tab.ER PO SCH ×2 (07:52→11:32)
[2018-10-04] MEDS: Zinc (Zinc Gluconate) 50 MG Tab PO SCH (07:53)
[2018-10-04] MEDS: Magnesium Oxide 400 MG Tab PO SCH ×2 (07:53→17:35)
[2018-10-04] MEDS: Sodium Chloride 0.9% 10 ML Syringe FLUSH SCH (07:54)
[2018-10-04] MEDS: Gentian Violet 59 ML Bottle TOP SCH ×2 (07:59→17:37)
[2018-10-04 08:14] LABS: CHLORIDE,CL 105 mmol/L (98-107); SODIUM,NA 139 mmol/L (136-145)
[2018-10-04] MEDS: D5 1/2 NS w/ 20 mEq/L KCl 1,000 ML IV SCH (10:15)
[2018-10-04] MEDS: Ibuprofen 200 MG Tab PO PRN (11:42)
[2018-10-04] MEDS ORDERED: Folic Acid 1 MG Tab PO ONE (13:42)
[2018-10-04] MEDS: Loperamide 2 MG Tab PO PRN (13:49)
[2018-10-04] MEDS ORDERED: Potassium Chloride 20 MEQ Tab.ER PO SCH (18:00)
--- NOTE | 2018-10-04 18:44 | PCM.PN ---
- General Info Date of Service: 10/04/18 Admission Dx/Problem (Free Text): 1. Leukopenia 2. 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 Functional Status: Reports: Pain Controlled - Review of Systems General: Reports: No Symptoms HEENT: Reports: No Symptoms Pulmonary: Reports: No Symptoms Cardiovascular: Reports: No Symptoms Gastrointestinal: Reports: No Symptoms Genitourinary: Reports: No Symptoms Musculoskeletal: Reports: No Symptoms Skin: Reports: No Symptoms Neurological: Reports: No Symptoms Psychiatric: Reports: No Symptoms - Patient Data Vitals - Most Recent: Last Vital Signs Temp 98.8 F 10/04/18 17:17 Pulse 91 10/04/18 17:17 Resp 16 10/04/18 17:17 BP 121/61 10/04/18 17:17 Pulse Ox 98 10/04/18 17:17 Weight - Most Recent: 136 lb 4.813 oz I&O - Last 24 Hours: Intake & Output 10/04/18 10/04/18 10/04/18 06:59 14:59 22:59 Intake Total 2100 180 120 Output Total 400 Balance 1700 180 120 Lab Results Last 24 Hours: Laboratory Results - last 24 hr 10/04/18 10/04/18 Range/Units 07:20 07:25 WBC 7.9 (4.0-10.2) K/uL RBC 3.85 (3.77-5.09) M/uL Hgb 10.9 L (11.7-15.5) g/dL Hct 33.3 L (34.0-46.0) % MCV 86.5 (84.0-98.0) fL MCH 28.3 (28.2-33.3) pg MCHC 32.7 (31.7-36.0) g/dL RDW 13.8 (11.2-14.1) % Plt Count 141 L (150-350) K/uL Neut % (Auto) 64.3 (45.0-80.0) % Lymph % (Auto) 22.0 (10.0-50.0) % [place] % (Auto) 13.4 (2.0-14.0) % Eos % (Auto) 0.0 (0.0-5.0) % Baso % (Auto) 0.3 (0.0-2.0) % Neut # (Auto) 5.08 (1.40-7.00) K/uL Lymph # (Auto) 1.74 (0.50-3.50) K/uL [place] # (Auto) 1.06 H (0.00-1.00) K/uL Eos # (Auto) 0.00 (0.00-0.50) K/uL Baso # (Auto) 0.02 (0.00-0.20) K/uL Sodium 139 (136-145) mmol/L Potassium 4.4 (3.5-5.1) mmol/L Chloride 105 (98-107) mmol/L Carbon Dioxide 28.6 (21.0-32.0) mmol/L BUN 1 L* (7-18) mg/dL Creatinine 0.76 (0.51-1.17) mg/dL Est Cr Clr Drug Dosing 69.80 mL/min Estimated GFR (MDRD) > 60 mL/min Glucose 99 (74-106) mg/dL Calcium 8.2 L (8.5-10.1) mg/dL Vitamin B12 1512 H (193-986) pg/mL Folate 8.5 L (8.6-58.9) ng/mL [facility] Results Last 24 Hours: Microbiology 10/01/18 09:40 Aerobic Blood Culture - Preliminary Blood - Venous - Lab Draw NO GROWTH AFTER 3 DAYS Anaerobic Blood Culture - Preliminary NO GROWTH AFTER 3 DAYS 10/01/18 09:22 Aerobic Blood Culture - Preliminary Blood - Venous NO GROWTH AFTER 3 DAYS Anaerobic Blood Culture - Preliminary NO GROWTH AFTER 3 DAYS 10/01/18 19:00 Stool Occult Blood (KYE) - Final Stool / Feces NEGATIVE OCCULT BLOOD Med Orders - Current: Current Medications Non-Formulary Medication (Nf Drug) each TOP ASDIRECTED MIRTHA Discontinued Medications Acetaminophen (Tylenol) 650 mg PO ONETIME ONE Stop: 10/01/18 09:11 Last Admin: 10/01/18 09:26 Dose: 650 mg Acetaminophen (Tylenol) 650 mg PO Q4H PRN PRN Reason: Pain Last Admin: 10/03/18 11:59 Dose: 650 mg Albuterol (Proventil Neb Soln) 2.5 mg NEB Q2H PRN PRN Reason: Dyspnea Albuterol/Ipratropium (Duoneb 3.0-0.5 Mg/3 Ml) 3 ml NEB Q4HRRT PRN PRN Reason: Dyspnea Budesonide (Pulmicort) 0.5 mg NEB BIDRT [facility] Famciclovir (Famciclovir) 500 mg PO TID [facility] Last Admin: 10/04/18 17:34 Dose: 500 mg Folic Acid (Folic Acid) 1 mg PO ONETIME ONE Stop: 10/04/18 13:43 Last Admin: 10/04/18 13:49 Dose: 1 mg Folic Acid (Folic Acid) 1 mg PO BEDTIME [facility] Gentian Madeline (Gentian Madeline) 2 ml TOP BID [facility] Last Admin: 10/04/18 17:37 Dose: Not Given Lactated Ringer's (Ringers, Lactated) 1,000 mls @ 999 mls/hr IV .BOLUS ONE Stop: 10/01/18 10:50 Last Admin: 10/01/18 09:50 Dose: 999 mls/hr Potassium Chloride/Dextrose/Sod Cl (D5 1/2 Ns W/ 20 Meq/L Kcl) 1,000 mls @ 50 mls/hr IV ASDIRECTED [facility] Last Admin: 10/04/18 10:15 Dose: 50 mls/hr Levofloxacin/Dextrose 500 mg/ (Premix) 100 mls @ 100 mls/hr IV ONETIME ONE Stop: 10/01/18 12:32 Last Admin: 10/01/18 11:49 Dose: 100 mls/hr Levofloxacin/Dextrose 500 mg/ (Premix) 100 mls @ 100 mls/hr IV Q24H [facility] Last Admin: 10/02/18 12:55 Dose: 100 mls/hr Piperacillin Sod/Tazobactam (Sod 3.375 gm/ Sodium Chloride) 100 mls @ 200 mls/ hr IV Q6H [facility] Last Admin: 10/04/18 13:43 Dose: 200 mls/hr Ibuprofen (Motrin) 400 mg PO Q6H PRN PRN Reason: Pain Last Admin: 10/04/18 11:42 Dose: 400 mg Iopamidol (Isovue-370 (76%)) 100 ml IVPUSH ONETIME ONE Stop: 10/01/18 13:01 Last Admin: 10/01/18 11:26 Dose: 100 ml Lactobacillus Rhamnosus (Culturelle) 2 cap PO TID [facility] Last Admin: 10/04/18 17:34 Dose: 2 cap Lidocaine HCl (Xylocaine 2% Viscous) 2 ml PO Q2H PRN PRN Reason: Oral pain Last Admin: 10/02/18 09:26 Dose: 2 ml Loperamide HCl (Imodium Ad) 2 mg PO Q4H PRN PRN Reason: loose stools Last Admin: 10/04/18 13:49 Dose: 2 mg Magnesium Oxide (Magnesium Oxide) 400 mg PO BID [facility] Last Admin: 10/04/18 17:35 Dose: 400 mg Magnesium Sulfate/Dextrose (Magnesium 1 Gm In D5w 100 Ml) 1 gm IV ONETIME ONE Stop: 10/03/18 14:15 Last Admin: 10/03/18 15:09 Dose: 1 gm Melatonin (Melatonin) 3 mg PO BEDTIME [facility] Last Admin: 10/03/18 19:53 Dose: 3 mg Ondansetron HCl (Zofran) 4 mg IVPUSH ONETIME ONE Stop: 10/01/18 10:21 Last Admin: 10/01/18 10:38 Dose: 4 mg Ondansetron HCl (Zofran) 4 mg IVPUSH Q6H PRN PRN Reason: Nausea/Vomiting Last Admin: 10/02/18 15:22 Dose: 4 mg Pegfilgrastim (Neulasta) 6 mg SUBCUT ONETIME ONE Stop: 10/01/18 13:26 Last Admin: 10/01/18 16:02 Dose: 6 mg Potassium Chloride (Klor-Con M20) 40 meq PO ONETIME ONE Stop: 10/01/18 10:11 Last Admin: 10/01/18 10:38 Dose: 40 meq Potassium Chloride (Klor-Con M20) 20 meq PO TID [facility] Last Admin: 10/04/18 11:32 Dose: 20 meq Potassium Chloride (Klor-Con M20) 20 meq PO BID [facility] Last Admin: 10/04/18 17:34 Dose: 20 meq Sodium Chloride (Saline Flush) 10 ml FLUSH ASDIRECTED PRN PRN Reason: Keep Vein Open Last Admin: 10/04/18 01:30 Dose: 10 ml Sodium Chloride (Saline Flush) 10 ml FLUSH Q12HR [facility] Last Admin: 10/04/18 07:54 Dose: Not Given Temazepam (Restoril) 15 mg PO BEDTIME PRN PRN Reason: Insomnia Last Admin: 10/02/18 00:42 Dose: 15 mg Tramadol HCl (Ultram) 50 mg PO Q6H PRN PRN Reason: Pain Last Admin: 10/02/18 17:21 Dose: 50 mg Zinc Gluconate (Zinc) 50 mg PO DAILY [facility]IR[facility] Last Admin: 10/04/18 07:53 Dose: 50 mg - Exam General: Alert, Oriented, Cooperative, No Acute Distress HEENT: Pupils Equal, Pupils Reactive, EOMI, Mucous Membr. Moist/[place], Other ( apthaous ulcers not as painful, purple color) Neck: Supple, Trachea Midline Lungs: Clear to Auscultation, Normal Respiratory Effort Cardiovascular: Regular Rate, Regular Rhythm GI/Abdominal Exam: Normal Bowel Sounds, Soft, Non-Tender, No Organomegaly, No Distention, No Abnormal Bruit, No Mass, Pelvis Stable (Female) Exam: Deferred Back Exam: Normal Inspection, Full Range of Motion Extremities: Normal Inspection, Normal Range of Motion, Non-Tender, No Pedal Edema, Normal Capillary Refill Skin: Warm, Dry, Intact Neurological: No New Focal Deficit Psy/Mental Status: Alert, Normal Affect, Normal Mood - Problem List & Annotations (1) Immunosuppression due to drug therapy SNOMED Code(s): 41675385, 73847920 Code(s): Z79.899 - OTHER [facility] (CURRENT) DRUG THERAPY Status: Acute (2) D-dimer, elevated SNOMED Code(s): 727702801 Code(s): R79.89 - OTHER SPECIFIED ABNORMAL FINDINGS OF BLOOD CHEMISTRY Status: Acute Priority: High Onset Date: 10/01/18 Annotation/Comment:: CTA results of the chest negative for PE on admission as above. Venous Doppler studies of the lower extremities (preliminary verbal report from fire control technician g ) on 10/01/18 was negative. No Clinical evidence of PE or DVT with Lovenox therapy not initiated, however continuation of other DVT precautions. (3) Dehydration SNOMED Code(s): 66684454 Code(s): E86.0 - DEHYDRATION Status: Acute Priority: High Onset Date: 10/01/18 Annotation/Comment:: Dehydration resolved with current IV fluids with continuation of IV fluids for now secondary to persistent hypokalemia and suboptimal oral intake. Diet adjusted/advanced. Note dehydration and tachycardia on admission secondary to anorexia and oral pain from her oral ulcers/stomatitis. Aggressive IV hydration started the emergency room and during the initial phases of this hospitalization. (4) Dermatitis SNOMED Code(s): 070218863 Code(s): L30.9 - DERMATITIS, UNSPECIFIED Status: Acute Priority: High Onset Date: 10/01/18 Annotation/Comment:: Patient's oral stomatitis and perirectal ulcers have responded well to current medical therapy. CARLOS Trujillo, from [facility] in [place] is updated on 10/02 concerning patient's admission, planned workup, etc. Per history HIV and oral viral cultures are still pending with these drawn in their office prior to patient's admission. Telephone consultation at 11:15 hours on 10/01/[address] Strange, site interpreter from [facility], cell phone #[phone], who is in agreement with our treatment plan. CellCept will not be initiated per his instructions with patient to be declared intolerant to this medication secondary to her severe leukopenia. He is in agreement with possible oral steroid therapy after her leukopenia is improved/resolves this to be prescribed at discharge. He is also in agreement with plan of Neulasta injection. Close follow-up on an outpatient basis. Note recent prescription for Famvir and Ultram by [facility]. (5) Hypokalemia SNOMED Code(s): 88087327 Code(s): E87.6 - HYPOKALEMIA Status: Acute Priority: High Onset Date: 10/02/18 (6) Hypomagnesemia SNOMED Code(s): 983197063 Code(s): E83.42 - HYPOMAGNESEMIA Status: Acute Priority: Medium Onset Date: 10/01/18 (7) Leukopenia SNOMED Code(s): 72809534, 120807329 Code(s): D72.819 - DECREASED WHITE BLOOD CELL COUNT, UNSPECIFIED Status: Acute Priority: High Onset Date: 10/01/18 Qualifiers: Leukopenia type: neutropenia Neutropenia type: other drug-induced Qualified Code(s): D70.2 - Other drug-induced agranulocytosis (8) Tachycardia SNOMED Code(s): 6315390 Code(s): R00.0 - TACHYCARDIA, UNSPECIFIED Status: Acute Priority: High Onset Date: 10/01/18 Annotation/Comment:: Resolved prior to admission with IV fluids. No chest pain or anginal type symptoms. (9) Mixed anxiety depressive disorder SNOMED Code(s): 299313205 Code(s): F41.8 - OTHER SPECIFIED ANXIETY DISORDERS Status: Chronic Priority: Medium Annotation/Comment:: Moderate control based on today's exam, however improved at admission and during this hospitalization. (10) Osteoarthritis SNOMED Code(s): 289421042 Code(s): M19.90 - UNSPECIFIED OSTEOARTHRITIS, UNSPECIFIED SITE Status: Chronic Priority: Medium Qualifiers: Osteoarthritis location: multiple joints Osteoarthritis type: primary Qualified Code(s): M15.0 - Primary generalized (osteo)arthritis Annotation/Comment:: Stable by history. Secondary to refractory rash uric acid level, RICHI, CRP, and rheumatoid factor were drawn on 10/02. - Problem List Review Problem List Initiated/Reviewed/Updated: Yes - My Orders Last 24 Hours: My Active Orders 10/04/18 17:40 Cardiac Monitoring Discontinue [RC] Click to Edit Peripheral IV Discontinue [OM.PC] Routine 10/04/18 17:45 Ready for Discharge [RC] PER UNIT ROUTINE 10/04/18 17:57 Communication Order [RC] DAILY - Assessment Assessment:: As above. Patient was placed on both Zosyn and Levaquin initially to cover for potential of bacterial infection. Also receiving antivirals. No obvious bacterial component identified at this time. Will discontinue Levaquin at this time. Zosyn continued for now. - Plan Plan:: As above. Extensive precautions were given to the patient, who is in agreement with the treatment plan. Patient's care to be transferred to [facility] in the a.m. on 10/04. CARLOS Trujillo, from [facility] in [place] was updated today as well. 10/04/18 Sheets Simone HOLLEY She feels much better today. Able to eat and drink. Labs markedly improved. Stable for discharge with [facility]. Will list her intolerant to mycophenolate mofetil (Cell Cept)
--- NOTE | 2018-10-04 18:49 | PCM.DCSUM1 ---
Discharge Summary - Hospital Course Diagnosis: Stroke: No - Discharge Data Discharge Date: 10/04/18 Discharge Disposition: Home, Self-Care 01 Condition: Good - Discharge Diagnosis/Problem(s) (1) Immunosuppression due to drug therapy SNOMED Code(s): 16627266, 70179411 ICD Code: Z79.899 - OTHER [facility] (CURRENT) DRUG THERAPY Status: Acute (2) D-dimer, elevated SNOMED Code(s): 288746262 ICD Code: R79.89 - OTHER SPECIFIED ABNORMAL FINDINGS OF BLOOD CHEMISTRY Status: Acute Priority: High Onset Date: 10/01/18 Problem Details: CTA results of the chest negative for PE on admission as above. Venous Doppler studies of the lower extremities (preliminary verbal report from fuel retrofitting technician ) on 10/01/18 was negative. No Clinical evidence of PE or DVT with Lovenox therapy not initiated, however continuation of other DVT precautions. (3) Dehydration SNOMED Code(s): 23537539 ICD Code: E86.0 - DEHYDRATION Status: Acute Priority: High Onset Date: 10/01/18 Problem Details: Dehydration resolved with current IV fluids with continuation of IV fluids for now secondary to persistent hypokalemia and suboptimal oral intake. Diet adjusted/advanced. Note dehydration and tachycardia on admission secondary to anorexia and oral pain from her oral ulcers/stomatitis. Aggressive IV hydration started the emergency room and during the initial phases of this hospitalization. (4) Dermatitis SNOMED Code(s): 820334859 ICD Code: L30.9 - DERMATITIS, UNSPECIFIED Status: Acute Priority: High Onset Date: 10/01/18 Problem Details: Patient's oral stomatitis and perirectal ulcers have responded well to current medical therapy. CARLOS Trujillo, from [facility] in [place] is updated on 10/02 concerning patient's admission, planned workup, etc. Per history HIV and oral viral cultures are still pending with these drawn in their office prior to patient's admission. Telephone consultation at 11:15 hours on 10/01/[address] Strange, mate fourth from [facility], cell phone #[phone], who is in agreement with our treatment plan. CellCept will not be initiated per his instructions with patient to be declared intolerant to this medication secondary to her severe leukopenia. He is in agreement with possible oral steroid therapy after her leukopenia is improved/resolves this to be prescribed at discharge. He is also in agreement with plan of Neulasta injection. Close follow-up on an outpatient basis. Note recent prescription for Famvir and Ultram by [facility]. (5) Hypokalemia SNOMED Code(s): 74531499 ICD Code: E87.6 - HYPOKALEMIA Status: Acute Priority: High Onset Date: 10/02/18 (6) Hypomagnesemia SNOMED Code(s): 527518345 ICD Code: E83.42 - HYPOMAGNESEMIA Status: Acute Priority: Medium Onset Date: 10/01/18 (7) Leukopenia SNOMED Code(s): 45074246, 502543060 ICD Code: D72.819 - DECREASED WHITE BLOOD CELL COUNT, UNSPECIFIED Status: Acute Priority: High Onset Date: 10/01/18 Qualifiers: Leukopenia type: neutropenia Neutropenia type: other drug-induced Qualified Code(s): D70.2 - Other drug-induced agranulocytosis (8) Tachycardia SNOMED Code(s): 1591206 ICD Code: R00.0 - TACHYCARDIA, UNSPECIFIED Status: Acute Priority: High Onset Date: 10/01/18 Problem Details: Resolved prior to admission with IV fluids. No chest pain or anginal type symptoms. (9) Mixed anxiety depressive disorder SNOMED Code(s): 922800237 ICD Code: F41.8 - OTHER SPECIFIED ANXIETY DISORDERS Status: Chronic Priority: Medium Problem Details: Moderate control based on today's exam, however improved at admission and during this hospitalization. (10) Osteoarthritis SNOMED Code(s): 929571489 ICD Code: M19.90 - UNSPECIFIED OSTEOARTHRITIS, UNSPECIFIED SITE Status: Chronic Priority: Medium Problem Details: Stable by history. Secondary to refractory rash uric acid level, RICHI, CRP, and rheumatoid factor were drawn on . Qualifiers: Osteoarthritis location: multiple joints Osteoarthritis type: primary Qualified Code(s): M15.0 - Primary generalized (osteo)arthritis (11) Folic acid deficiency SNOMED Code(s): 226375965 ICD Code: E53.8 - DEFICIENCY OF OTHER SPECIFIED B GROUP VITAMINS Status: Acute Priority: High - Patient Instructions Diet: Usual Diet as Tolerated Activity: As Tolerated Driving: May Drive Today Showering/Bathing: May Shower Notify Provider of: Fever, Increased Pain, Nausea and/or Vomiting Other/Special Instructions: Call [facility] [phone] and schedule an appointment this week with Rossy Hurtado and to have lab work. - Discharge Plan *PRESCRIPTION DRUG MONITORING PROGRAM REVIEWED*: Not Applicable *COPY OF PRESCRIPTION DRUG MONITORING REPORT IN PATIENT FELICIA: Not Applicable Prescriptions/Med Rec: Folic Acid 1 mg PO BEDTIME #100 tablet Home Medications: Home Meds Acetaminophen [Tylenol] 650 mg PO Q4H PRN 10/01/18 [History] Diphenhyd/Lidocaine/Nystatin [Magic Mouthwash] 10 ml PO ASDIRECTED 10/01/18 [ History] Famciclovir [Famvir] 500 mg PO TID 10/01/18 [History] Ibuprofen 400 mg PO Q6H PRN 10/01/18 [History] Lidocaine 5% 1 applic TOP Q4HR PRN 10/01/18 [History] Melatonin 3 mg PO BEDTIME 10/01/18 [History] traMADol HCl [Tramadol HCl] 50 mg PO Q6H PRN 10/01/18 [History] traZODone HCl [Trazodone HCl] 50 mg PO BEDTIME 10/01/18 [History] Folic Acid 1 mg PO BEDTIME #100 tablet 10/04/18 [Rx] Oxygen Therapy Mode: Room Air Patient Handouts: Piperacillin; Tazobactam injection, Levofloxacin injection, Pegfilgrastim injection, Lidocaine oral solution, Neutropenia, Famciclovir tablets Forms: ED Department Discharge Referrals: Rossy Hurtado PA [Primary Care Provider] - - Discharge Summary/Plan Comment DC Time >30 min.: No - Patient Data Vitals - Most Recent: Last Vital Signs Temp 98.8 F 10/04/18 17:17 Pulse 91 10/04/18 17:17 Resp 16 10/04/18 17:17 BP 121/61 10/04/18 17:17 Pulse Ox 98 10/04/18 17:17 Weight - Most Recent: 136 lb 4.813 oz I&O - Last 24 hours: Intake & Output 10/04/18 10/04/18 10/04/18 06:59 14:59 22:59 Intake Total 2100 180 120 Output Total 400 Balance 1700 180 120 Lab Results - Last 24 hrs: Laboratory Results - last 24 hr 10/04/18 10/04/18 Range/Units 07:20 07:25 WBC 7.9 (4.0-10.2) K/uL RBC 3.85 (3.77-5.09) M/uL Hgb 10.9 L (11.7-15.5) g/dL Hct 33.3 L (34.0-46.0) % MCV 86.5 (84.0-98.0) fL MCH 28.3 (28.2-33.3) pg MCHC 32.7 (31.7-36.0) g/dL RDW 13.8 (11.2-14.1) % Plt Count 141 L (150-350) K/uL Neut % (Auto) 64.3 (45.0-80.0) % Lymph % (Auto) 22.0 (10.0-50.0) % [place] % (Auto) 13.4 (2.0-14.0) % Eos % (Auto) 0.0 (0.0-5.0) % Baso % (Auto) 0.3 (0.0-2.0) % Neut # (Auto) 5.08 (1.40-7.00) K/uL Lymph # (Auto) 1.74 (0.50-3.50) K/uL [place] # (Auto) 1.06 H (0.00-1.00) K/uL Eos # (Auto) 0.00 (0.00-0.50) K/uL Baso # (Auto) 0.02 (0.00-0.20) K/uL Sodium 139 (136-145) mmol/L Potassium 4.4 (3.5-5.1) mmol/L Chloride 105 (98-107) mmol/L Carbon Dioxide 28.6 (21.0-32.0) mmol/L BUN 1 L* (7-18) mg/dL Creatinine 0.76 (0.51-1.17) mg/dL Est Cr Clr Drug Dosing 69.80 mL/min Estimated GFR (MDRD) > 60 mL/min Glucose 99 (74-106) mg/dL Calcium 8.2 L (8.5-10.1) mg/dL Vitamin B12 1512 H (193-986) pg/mL Folate 8.5 L (8.6-58.9) ng/mL [facility] Results - Last 24 hrs: Microbiology 10/01/18 09:40 Aerobic Blood Culture - Preliminary Blood - Venous - Lab Draw NO GROWTH AFTER 3 DAYS Anaerobic Blood Culture - Preliminary NO GROWTH AFTER 3 DAYS 10/01/18 09:22 Aerobic Blood Culture - Preliminary Blood - Venous NO GROWTH AFTER 3 DAYS Anaerobic Blood Culture - Preliminary NO GROWTH AFTER 3 DAYS 10/01/18 19:00 Stool Occult Blood ([facility]HOU) - Final Stool / Feces NEGATIVE OCCULT BLOOD Med Orders - Current: Current Medications Non-Formulary Medication (Nf Drug) each TOP ASDIRECTED [facility] Discontinued Medications Acetaminophen (Tylenol) 650 mg PO ONETIME ONE Stop: 10/01/18 09:11 Last Admin: 10/01/18 09:26 Dose: 650 mg Acetaminophen (Tylenol) 650 mg PO Q4H PRN PRN Reason: Pain Last Admin: 10/03/18 11:59 Dose: 650 mg Albuterol (Proventil Neb Soln) 2.5 mg NEB Q2H PRN PRN Reason: Dyspnea Albuterol/Ipratropium (Duoneb 3.0-0.5 Mg/3 Ml) 3 ml NEB Q4HRRT PRN PRN Reason: Dyspnea Budesonide (Pulmicort) 0.5 mg NEB BIDRT [facility] Famciclovir (Famciclovir) 500 mg PO TID [facility] Last Admin: 10/04/18 17:34 Dose: 500 mg Folic Acid (Folic Acid) 1 mg PO ONETIME ONE Stop: 10/04/18 13:43 Last Admin: 10/04/18 13:49 Dose: 1 mg Folic Acid (Folic Acid) 1 mg PO BEDTIME [facility] Gentian Madeline (Gentian Madeline) 2 ml TOP BID [facility] Last Admin: 10/04/18 17:37 Dose: Not Given Lactated Ringer's (Ringers, Lactated) 1,000 mls @ 999 mls/hr IV .BOLUS ONE Stop: 10/01/18 10:50 Last Admin: 10/01/18 09:50 Dose: 999 mls/hr Potassium Chloride/Dextrose/Sod Cl (D5 1/2 Ns W/ 20 Meq/L Kcl) 1,000 mls @ 50 mls/hr IV ASDIRECTED [facility] Last Admin: 10/04/18 10:15 Dose: 50 mls/hr Levofloxacin/Dextrose 500 mg/ (Premix) 100 mls @ 100 mls/hr IV ONETIME ONE Stop: 10/01/18 12:32 Last Admin: 10/01/18 11:49 Dose: 100 mls/hr Levofloxacin/Dextrose 500 mg/ (Premix) 100 mls @ 100 mls/hr IV Q24H [facility] Last Admin: 10/02/18 12:55 Dose: 100 mls/hr Piperacillin Sod/Tazobactam (Sod 3.375 gm/ Sodium Chloride) 100 mls @ 200 mls/ hr IV Q6H [facility] Last Admin: 10/04/18 13:43 Dose: 200 mls/hr Ibuprofen (Motrin) 400 mg PO Q6H PRN PRN Reason: Pain Last Admin: 10/04/18 11:42 Dose: 400 mg Iopamidol (Isovue-370 (76%)) 100 ml IVPUSH ONETIME ONE Stop: 10/01/18 13:01 Last Admin: 10/01/18 11:26 Dose: 100 ml Lactobacillus Rhamnosus (Culturelle) 2 cap PO TID [facility] Last Admin: 10/04/18 17:34 Dose: 2 cap Lidocaine HCl (Xylocaine 2% Viscous) 2 ml PO Q2H PRN PRN Reason: Oral pain Last Admin: 10/02/18 09:26 Dose: 2 ml Loperamide HCl (Imodium Ad) 2 mg PO Q4H PRN PRN Reason: loose stools Last Admin: 10/04/18 13:49 Dose: 2 mg Magnesium Oxide (Magnesium Oxide) 400 mg PO BID [facility] Last Admin: 10/04/18 17:35 Dose: 400 mg Magnesium Sulfate/Dextrose (Magnesium 1 Gm In D5w 100 Ml) 1 gm IV ONETIME ONE Stop: 10/03/18 14:15 Last Admin: 10/03/18 15:09 Dose: 1 gm Melatonin (Melatonin) 3 mg PO BEDTIME [facility] Last Admin: 10/03/18 19:53 Dose: 3 mg Ondansetron HCl (Zofran) 4 mg IVPUSH ONETIME ONE Stop: 10/01/18 10:21 Last Admin: 10/01/18 10:38 Dose: 4 mg Ondansetron HCl (Zofran) 4 mg IVPUSH Q6H PRN PRN Reason: Nausea/Vomiting Last Admin: 10/02/18 15:22 Dose: 4 mg Pegfilgrastim (Neulasta) 6 mg SUBCUT ONETIME ONE Stop: 10/01/18 13:26 Last Admin: 10/01/18 16:02 Dose: 6 mg Potassium Chloride (Klor-Con M20) 40 meq PO ONETIME ONE Stop: 10/01/18 10:11 Last Admin: 10/01/18 10:38 Dose: 40 meq Potassium Chloride (Klor-Con M20) 20 meq PO TID [facility] Last Admin: 10/04/18 11:32 Dose: 20 meq Potassium Chloride (Klor-Con M20) 20 meq PO BID [facility] Last Admin: 10/04/18 17:34 Dose: 20 meq Sodium Chloride (Saline Flush) 10 ml FLUSH ASDIRECTED PRN PRN Reason: Keep Vein Open Last Admin: 10/04/18 01:30 Dose: 10 ml Sodium Chloride (Saline Flush) 10 ml FLUSH Q12HR [facility] Last Admin: 10/04/18 07:54 Dose: Not Given Temazepam (Restoril) 15 mg PO BEDTIME PRN PRN Reason: Insomnia Last Admin: 10/02/18 00:42 Dose: 15 mg Tramadol HCl (Ultram) 50 mg PO Q6H PRN PRN Reason: Pain Last Admin: 10/02/18 17:21 Dose: 50 mg Zinc Gluconate (Zinc) 50 mg PO DAILY [facility] Last Admin: 10/04/18 07:53 Dose: 50 mg
[2018-10-04] MEDS ORDERED: Folic Acid 1 MG Tab PO SCH (20:00)
== END 2018-10-04 18:00 | disposition home or self-care (01) | DRG 422 ==
LOC: LL.ED 09:05 → LL.MS 12:35
PROVIDERS: ADMIT Family Medicine; ATTEND Family Medicine
DX: E87.6 Hypokalemia (principal); E86.0 Dehydration; D70.2 Other drug-induced agranulocytosis; R79.89 Other specified abnormal findings of blood chemistry; L27.0 Generalized skin eruption due to drugs and medicaments taken internally; T45.1X5A Adverse effect of antineoplastic and immunosuppressive drugs, initial encounter; E83.42 Hypomagnesemia; R00.0 Tachycardia, unspecified; F41.8 Other specified anxiety disorders; E53.8 Deficiency of other specified B group vitamins; M15.0 Primary generalized (osteo)arthritis; J30.9 Allergic rhinitis, unspecified; H54.7 Unspecified visual loss; H04.129 Dry eye syndrome of unspecified lacrimal gland; G43.909 Migraine, unspecified, not intractable, without status migrainosus; G89.29 Other chronic pain; G44.209 Tension-type headache, unspecified, not intractable; E11.9 Type 2 diabetes mellitus without complications; D64.9 Anemia, unspecified; E88.09 Other disorders of plasma-protein metabolism, not elsewhere classified; Z98.51 Tubal ligation status; Z79.899 Other long term (current) drug therapy
CPT/HCPCS: 36415; 71046; 71275; 80048; 80053; 81001; 82272; 82550; 82553; 82607; 82746; 83605; 83735; 83880; 84443; 84484; 84550; 84703; 85025; 85379; 85610; 85730; 86038; 86140; 86431; 87040; 87081; 87086; 87430; 87804; 93970; 96361; 96365; 99285-25; A9270-GY; J1956; J2405; J2505; J2543; J3475; J3480; J7050; J7120; Q9967

== ENCOUNTER 2019-06-06 09:08 | Emergency (ER) | payer BC ==
[2019-06-06] MEDS ORDERED: Sodium Chloride 0.9% 10 ML Syringe FLUSH PRN (09:36)
[2019-06-06] MEDS ORDERED: Sodium Chloride 0.9% 1,000 ML IV SCH (09:45)
[2019-06-06 10:11] LABS: CHLORIDE,CL 102 mmol/L (98-107); SODIUM,NA 140 mmol/L (136-145)
--- NOTE | 2019-06-06 10:41 | EDM.PDOC ---
ED HPI GENERAL MEDICAL PROBLEM - General Chief Complaint: General Stated Complaint: feels like passing out/sick since thursday Time Seen by Provider: 06/06/19 09:08 Source of Information: Reports: Patient History Limitations: Reports: No Limitations - History of Present Illness INITIAL COMMENTS - FREE TEXT/NARRATIVE: Patient has not been feeling well for about 4 days states that she's feeling weak and like passing out. Patient has a history of immunosuppression she is on methotrexate. Onset: Gradual Duration: Day(s):, Getting Worse Location: Reports: Chest Quality: Reports: Ache Severity: Moderate Improves with: Reports: None lower back Pain Score (Numeric/FACES): 3 - Related Data Allergies Allergy/AdvReac Type Severity Reaction Status Date / Time No Known Allergies Allergy Verified 06/06/19 09:22 Home Meds: Home Meds Acetaminophen [Tylenol] 650 mg PO Q4H PRN 10/01/18 [History] Ibuprofen 400 mg PO Q6H PRN 10/01/18 [History] Lidocaine 5% 1 applic TOP Q4HR PRN 10/01/18 [History] Melatonin 3 mg PO BEDTIME 10/01/18 [History] traZODone HCl [Trazodone HCl] 50 mg PO BEDTIME PRN 10/01/18 [History] Folic Acid 1 mg PO BEDTIME #100 tablet 10/04/18 [Rx] Levofloxacin [Levaquin] 750 mg PO DAILY 10 Days #10 tablet 06/06/19 [Rx] Past Medical History HEENT History: Reports: Allergic Rhinitis, Impaired Vision, Other (See Below) Other HEENT History: She wears glasses. Dry eye syndrome. Cardiovascular History: Reports: Heart Murmur, Other (See Below) Other Cardiovascular History: Benign heart murmur by distant echocardiogram as below. Occasional hypotension. Respiratory History: Reports: Intubation, Previous Gastrointestinal History: Reports: Bowel Obstruction, Other (See Below) Other Gastrointestinal History: Post ileus on 12/03/10. 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 Note history of placental abruption at 34 1/7 weeks requiring as below. Otherwise, Full term without complications during pregnancies or deliveries. Borderline gestational diabetes with secondary . LMP one week ago, which was light. Musculoskeletal History: Reports: Arthritis, Osteoarthritis, Other (See Below) Other Musculoskeletal History: Right rotator cuff tear requiring surgery as below. Neurological History: Reports: Headaches, Chronic, Migraines, Other (See Below) Other Neuro History: Mixed migraine and tension headaches. Psychiatric History: Reports: Anxiety, Depression Endocrine/Metabolic History: Reports: Diabetes, Gestational, Other (See Below) Other Endocrine/Metabolic History: Borderline gestational diabetes as above. Hypokalemia. Hematologic History: Reports: Anemia, Blood Transfusion(s), Other (See Below) Other Hematologic History: Leukopenia secondary to immunosuppressant therapy in 2018. Blood transfusion in 2006. Immunologic History: Reports: Immunosuppression, Other (See Below) Other Immunologic History: Medication induced immunosuppression secondary to treatment for her rash as below. Oncologic (Cancer) History: Reports: None Dermatologic History: Reports: Other (See Below) Other Dermatologic History: Nonspecific rash since 2012 with diagnosis of hypersensitivity dermatitis requiring immunosuppression in [id number]. - Infectious Disease History Infectious Disease History: Reports: Chicken Pox, Influenza - Past Surgical History Head Surgeries/Procedures: Reports: None HEENT Surgical History: Reports: Oral Surgery, Other (See Below) Other HEENT Surgeries/Procedures: Fults teeth extraction 4 at age 20 with current posterior braces. Cardiovascular Surgical History: Reports: None Respiratory Surgical History: Reports: None GI Surgical History: Reports: None Female Surgical History: Reports: Breast Implant, D&C, Dilitation & Evacuation, Tubal Ligation, Other (See Below) Other Female Surgeries/Procedures: Bilateral breast implants at age 42 in 2011. Bilateral tubal ligation in 2010. Emergency on 12/01/10 secondary to placental abruption at 34 1/7 weeks gestation as above. Resection of uterine synechiae on 02/26/10. D&C secondary to SABs on 03/09/08 and 02/11/07. Endocrine Surgical History: Reports: None Musculoskeletal Surgical History: Reports: Arthroscopic Procedure, Shoulder Surgery Oncologic Surgical History: Reports: None Dermatological Surgical History: Reports: Skin Biopsy, Other (See Below) - Past Imaging History Past Imaging History: Reports: Cardiac Echo (1996 and 2006 with results not available), CAT Scan (CT of the abdomen and pelvis on 12/03/10. Negative CTA of the chest on 12/07/06.), Mammogram (Last mammogram on 01/21/16), MRI (MRI of the right shoulder on 01/05/17.), Ultrasound (Breast ultrasound on 06/10/13. Right axillary ultrasound on 06/10/13), Other (See Below) (Hydrosalpingogram on 04/06/09. ) Social & Family History - Family History HEENT: Reports: None Cardiac: Reports: Other (See Below) Other Cardiac Family History: Other with unknown type of heart disease. Paternal grandmother with hypertension. Respiratory: Reports: COPD, Other (See Below) Other Respiratory Family Hisory: Paternal grandfather with COPD with history of tobacco use. : Reports: None OBGYN: Reports: None Musculoskeletal: Reports: RA, Other (See Below) Other Musculoskeletal Family History: Mother with rheumatoid arthritis. Neurological: Reports: None Psychiatric: Reports: None Endocrine/Metabolic: Reports: Diabetes, Gestational, Diabetes, type II, Hypothyroidism, IDDM, Other (See Below) Other Endocrine/Metabolic Family History: Paternal grandfather with AODM. Paternal grandmother with hypothyroidism. Hematologic: Reports: None Immunologic: Reports: None Dermatologic: Reports: None Oncologic: Reports: Other (See Below) Other Oncologic Family History: Maternal grandfather with fatal unknown type of cancer in his 70s. Maternal aunt with fatal breast cancer in her 60s. Maternal cousin with fatal leukemia at age 10. Paternal aunt with fatal lung cancer in her 40s with no history of tobacco use. Paternal grandfather with prostate cancer. - Tobacco Use Smoking Status *Q: Never Smoker Second Hand Smoke Exposure: No - Caffeine Use Caffeine Use: Reports: Coffee, Soda - Recreational Drug Use Recreational Drug Use: No - Sexual History Sexual History: Reports: Sexually Active ED ROS GENERAL - Review of Systems Review Of Systems: See Below Constitutional: Reports: Chills, Weakness HEENT: Reports: No Symptoms Respiratory: Reports: Shortness of Breath, Cough Cardiovascular: Reports: No Symptoms Endocrine: Reports: No Symptoms GI/Abdominal: Reports: No Symptoms : Reports: No Symptoms Neurological: Reports: No Symptoms Psychiatric: Reports: No Symptoms Hematologic/Lymphatic: Reports: No Symptoms Immunologic: Reports: No Symptoms ED EXAM, GENERAL - Physical Exam Exam: See Below Exam Limited By: No Limitations General Appearance: Alert, WD/WN, No Apparent Distress Ears: Normal External Exam, Normal Canal, Hearing Grossly Normal, Normal TMs Nose: Normal Inspection, Normal Mucosa, No Blood Throat/Mouth: Normal Inspection, Normal Lips, Normal Teeth, Normal Gums, Normal Oropharynx, Normal Voice, No Airway Compromise Head: Atraumatic, Normocephalic Neck: Normal Inspection, Supple, Non-Tender, Full Range of Motion Respiratory/Chest: Decreased Breath Sounds Cardiovascular: Normal Peripheral Pulses, Regular Rate, Rhythm, No Edema, No Gallop, No JVD, No Murmur, No Rub GI/Abdominal: Normal Bowel Sounds, Soft, Non-Tender, No Organomegaly, No Distention, No Abnormal Bruit, No Mass Back Exam: Normal Inspection, Full Range of Motion, NT Extremities: Normal Inspection, Normal Range of Motion, Non-Tender, Normal Capillary Refill, No Pedal Edema Neurological: Alert, Oriented, CN II-XII Intact, Normal Cognition, Normal Gait, Normal Reflexes, No Motor/Sensory Deficits Psychiatric: Normal Affect, Normal Mood Skin Exam: Warm, Dry, Intact, Normal Color, No Rash Lymphatic: No Adenopathy Course - Vital Signs Last Recorded V/S: Last Vital Signs Temp 98.9 F 06/06/19 09:20 Pulse 87 06/06/19 10:35 Resp 12 06/06/19 10:35 BP 101/61 06/06/19 10:35 Pulse Ox 99 06/06/19 10:35 - Orders/Labs/Meds Orders: Active Orders 24 hr Category Date Time Status Chest 2V [CR] Stat Exams 06/06/19 09:34 Taken CULTURE BLOOD [BC] Stat Lab 06/06/19 10:00 Received CULTURE BLOOD [BC] Stat Lab 06/06/19 10:04 Received Blood Culture x2 Reflex Set [OM.PC] Stat Oth 06/06/19 09:51 Ordered Saline Lock Insert [OM.PC] Stat Oth 06/06/19 09:36 Ordered Labs: Laboratory Tests 06/06/19 06/06/19 Range/Units 09:50 09:50 WBC 5.4 (4.0-10.2) K/uL RBC 4.38 (3.77-5.09) M/uL Hgb 12.5 (11.7-15.5) g/dL Hct 37.1 (34.0-46.0) % MCV 84.7 D (84.0-98.0) fL MCH 28.5 (28.2-33.3) pg MCHC 33.7 (31.7-36.0) g/dL RDW 14.0 (11.2-14.1) % Plt Count 198 (150-350) K/uL Neut % (Auto) 77.9 (45.0-80.0) % Lymph % (Auto) 12.9 (10.0-50.0) % Wayne % (Auto) 7.9 (2.0-14.0) % Eos % (Auto) 0.9 (0.0-5.0) % Baso % (Auto) 0.4 (0.0-2.0) % Neut # (Auto) 4.24 (1.40-7.00) K/uL Lymph # (Auto) 0.70 (0.50-3.50) K/uL Wayne # (Auto) 0.43 (0.00-1.00) K/uL Eos # (Auto) 0.05 (0.00-0.50) K/uL Baso # (Auto) 0.02 (0.00-0.20) K/uL Sodium 140 (136-145) mmol/L Potassium 3.3 L (3.5-5.1) mmol/L Chloride 102 (98-107) mmol/L Carbon Dioxide 22.8 (21.0-32.0) mmol/L BUN 12 (7-18) mg/dL Creatinine 0.79 (0.51-1.17) mg/dL Est Cr Clr Drug Dosing 67.14 mL/min Estimated GFR (MDRD) > 60 mL/min Glucose 100 (74-106) mg/dL Calcium 9.2 (8.5-10.1) mg/dL Meds: Medications Discontinued Medications Generic Name Dose Route Start Last Admin Trade Name Freq PRN Reason Stop Dose Admin Sodium Chloride 1,000 mls @ 259 mls/hr 06/06/19 09:45 06/06/19 10:01 Normal Saline IV 259 mls/hr ASDIRECTED MIRTHA Administration Sodium Chloride 10 ml 06/06/19 09:36 Saline Flush FLUSH ASDIRECTED PRN Keep Vein Open Departure - Departure Time of Disposition: 14:10 Disposition: Home, Self-Care 01 Clinical Impression: Pneumonia - Discharge Information *PRESCRIPTION DRUG MONITORING PROGRAM REVIEWED*: Not Applicable *COPY OF PRESCRIPTION DRUG MONITORING REPORT IN PATIENT FELICIA: Not Applicable Prescriptions: Levofloxacin [Levaquin] 750 mg PO DAILY 10 Days #10 tablet Instructions: Levofloxacin tablets, Community-Acquired Pneumonia, Adult Referrals: Yumiko Sheehan, ASSOCIATE PASTOR [Primary Care Provider] - Forms: ED Department Discharge - My Orders Last 24 Hours: My Active Orders 06/06/19 09:34 Chest 2V [CR] Stat 06/06/19 09:36 Saline Lock Insert [OM.PC] Stat 06/06/19 09:51 Blood Culture x2 Reflex Set [OM.PC] Stat 06/06/19 10:00 CULTURE BLOOD [BC] Stat 06/06/19 10:04 CULTURE BLOOD [BC] Stat - Assessment/Plan Last 24 Hours: My Active Orders 06/06/19 09:34 Chest 2V [CR] Stat 06/06/19 09:36 Saline Lock Insert [OM.PC] Stat 06/06/19 09:51 Blood Culture x2 Reflex Set [OM.PC] Stat 06/06/19 10:00 CULTURE BLOOD [BC] Stat 06/06/19 10:04 CULTURE BLOOD [BC] Stat
[2019-06-06 10:48] VITALS: BP 101/61; PULSE 87
== END 2019-06-06 14:10 | disposition home or self-care (01) ==
LOC: LL.ED 09:08
DX: J18.9 Pneumonia, unspecified organism (principal)
CPT/HCPCS: 36415; 71046; 80048; 85025; 87040; 96360; 96361; 99285-25; J7030

== ENCOUNTER 2024-01-02 16:03 | Emergency (ER) | payer BC ==
[2024-01-02 16:59] LABS: BASOPHILS ABSOLUTE AUTO 0.06 K/uL (0.00-0.20); BASOPHILS PERCENT AUTO 1.2 % (0.0-2.0); EOSINOPHILS ABSOLUTE AUTO 0.11 K/uL (0.00-0.50); EOSINOPHILS PERCENT AUTO 2.2 % (0.0-5.0); HEMATOCRIT 41.3 % (34.0-46.0); HEMOGLOBIN 14.5 g/dL (11.7-15.5); LYMPHOCYTES ABSOLUTE AUTO 1.08 K/uL (0.50-3.50); LYMPHOCYTES PERCENT AUTO 21.4 % (10.0-50.0); MEAN CORPUSCULAR HEMOGLOBIN 31.9 pg (28.2-33.3); MEAN CORPUSCULAR HGB CONC 35.1 g/dL (31.7-36.0); MONOCYTES ABSOLUTE AUTO 0.38 K/uL (0.00-1.00); MONOCYTES PERCENT AUTO 7.5 % (2.0-14.0); NEUTROPHILS ABSOLUTE AUTO 3.42 K/uL (1.40-7.00); NEUTROPHILS PERCENT AUTO 67.7 % (45.0-80.0); PLATELET COUNT,PLT 188 K/uL (150-350); RED BLOOD CELL COUNT 4.54 M/uL (3.77-5.09); RED CELL DISTRIBUTION WIDTH 13.9 % (11.2-14.1); WHITE BLOOD CELL COUNT,WBC 5.1 K/uL (4.0-10.2)
[2024-01-02 17:11] LABS: ALANINE AMINOTRANSFERASE,ALT 39 U/L (12-78); ALBUMIN 3.8 g/dL (3.4-5.0); ALKALINE PHOSPHATASE 63 IU/L (46-116); ASPARTATE AMNIOTRANSFERASE,AST 32 U/L (15-37); BLOOD UREA NITROGEN,BUN 12 mg/dL (7-18); CALCIUM 8.4 mg/dL (8.5-10.1); CHLORIDE,CL 106 mmol/L (98-107); CREATININE 0.74 mg/dL (0.51-1.17); ESTIMATED GFR 98 mL/min (>=60); GLUCOSE RANDOM 107 mg/dL (70-99); PROTEIN TOTAL,TP 6.4 g/dL (6.4-8.2); SODIUM,NA 144 mmol/L (136-145)
[2024-01-02] MEDS: Potassium Chloride 20 MEQ Tab.ER PO ONE (18:37)
[2024-01-02] MEDS: Orphenadrine 100 MG Tab.ER PO ONE (18:37)
[2024-01-02] MEDS: Take Home: Potassium Chloride 10 MEQ Tab, 10 Tab Pack PO ONE (18:39)
[2024-01-02] MEDS: Take Home: traMADol 50 MG, 4 Tab Pack PO ONE (18:50)
[2024-01-02] MEDS: traMADol 50 MG Tab PO ONE (18:50)
== END 2024-01-02 18:55 | disposition home or self-care (01) ==
LOC: LL.ED 16:03
DX: S01.511A Laceration without foreign body of lip, initial encounter (principal); E87.6 Hypokalemia; R55 Syncope and collapse; W18.39XA Other fall on same level, initial encounter
CPT/HCPCS: 12011; 36415; 71046; 80053; 83735; 84484; 85025; 85379; 93005; 93010; 99284; A9270-GY